=== PATIENT | male | born 1965 | race Caucasian/White ===

== ENCOUNTER → 2020-10-09 09:21 | Outpatient (BNVA) | payer OTHER, SELFPAY | PROVIDERS: Visit Provider Urology | DX: N40.1 Benign prostatic hyperplasia with lower urinary tract symptoms (principal) | CPT/HCPCS: 99212 ==

== ENCOUNTER 2021-04-01 14:06 | Outpatient (REF) | payer OTHER, SELFPAY ==
[2021-04-01 15:30] LABS: Prostate Specific Antigen 0.29 ng/mL (<0.05-4.0)
== END 2021-04-01 14:07 | disposition home or self-care (01) ==
LOC: HO.LAB 14:06
PROVIDERS: Visit Provider Urology
DX: Z12.5 Encounter for screening for malignant neoplasm of prostate (principal); N40.1 Benign prostatic hyperplasia with lower urinary tract symptoms; N13.8 Other obstructive and reflux uropathy
CPT/HCPCS: 36415; 84153

== ENCOUNTER → 2021-04-15 08:53 | Outpatient (BNVA) | payer OTHER, SELFPAY | PROVIDERS: PCP Internal Medicine; Visit Provider Urology ==

== ENCOUNTER 2021-08-19 10:12 | Outpatient (REF) | payer OTHER, SELFPAY ==
[2021-08-19 11:29] LABS: MANUAL DIFF FLAG NO
[2021-08-19 11:41] LABS: Basophils Percent Auto 0.2 % (0-2); Hematocrit 47.3 % (42.0-52.0); Hemoglobin 15.8 g/dl (14.0-18.0); Imm Gran Abs Auto 0.03 X10*3/uL (0.00-0.03); Imm Gran Pct Auto 0.5 % (0.0-0.4); Lymphocytes Absolute Auto 1.6 X10*3/uL (1.2-4.9); Lymphocytes Percent Auto 24.3 % (20-40); Mean Corpuscular HGB Conc 33.4 g/dl (31.0-36.0); Mean Corpuscular Hemoglobin 28.1 pg (27.0-33.0); Mean Corpuscular Volume 84.2 fL (80.0-98.0); Monocytes Absolute Auto 0.6 X10*3/uL (0.1-1.2); Monocytes Percent Auto 9.1 % (2-11); Neutrophils Absolute Auto 4.2 x10*3/uL (2.0-8.3); Neutrophils Percent Auto 65.9 % (45-73); Platelet Count 192 X10*3/uL (160-400); Red Blood Count 5.62 X10*6/uL (4.60-5.80); Red Cell Distribution Width 12.9 % (11.0-16.0); White Blood Count 6.4 X10*3/uL (4.8-10.8)
[2021-08-19 12:21] LABS: TSH reflex Free T4 0.74 uIU/mL (0.32-4.0)
[2021-08-19 12:38] LABS: Alanine Aminotransferase 15 U/L (0-40); Albumin Level 4.7 g/dL (3.5-5.0); Alkaline Phosphatase 161 U/L (39-117); Anion Gap 13 (12-20); Aspartate Amino Transferase 12 U/L (5-37); Bilirubin Total 0.4 mg/dL (0.0-1.0); Blood Urea Nitrogen 11 mg/dL (9-16); Calcium 10.5 mg/dL (8.4-10.2); Carbon Dioxide 27 mmol/L (22-29); Chloride 105 mmol/L (96-108); Cholesterol 200 mg/dL; Estimated Glomerular Filt Rate > 60; Glucose Fasting 124 mg/dL (60-99); HDL Cholesterol 32 mg/dL; LDL Cholesterol Calculated 130 mg/dl; Potassium 4.6 mmol/L (3.3-5.1); Sodium 140 mmol/L (135-145); Total Protein 7.9 g/dL (6.5-8.0); Triglycerides 192 mg/dL
== END 2021-08-19 10:13 | disposition home or self-care (01) ==
LOC: HO.HMGCLDS 10:12
PROVIDERS: Visit Provider Internal Medicine
DX: E66.09 Other obesity due to excess calories (principal); E78.9 Disorder of lipoprotein metabolism, unspecified; K21.9 Gastro-esophageal reflux disease without esophagitis
CPT/HCPCS: 36415; 80053; 80061; 84443; 85025

== ENCOUNTER 2022-01-13 10:12 | Outpatient (REF) | payer OTHER, SELFPAY ==
[2022-01-13 12:10] LABS: Estimated Average Glucose 143 mg/dL; Hemoglobin A1c % 6.6 %
[2022-01-13 12:41] LABS: Alanine Aminotransferase 18 U/L (0-40); Albumin Level 4.6 g/dL (3.5-5.0); Alkaline Phosphatase 151 U/L (39-117); Anion Gap 15 (12-20); Aspartate Amino Transferase 12 U/L (5-37); Bilirubin Total 0.3 mg/dL (0.0-1.0); Blood Urea Nitrogen 9 mg/dL (9-16); Calcium 10.2 mg/dL (8.4-10.2); Carbon Dioxide 24 mmol/L (22-29); Chloride 106 mmol/L (96-108); Estimated Glomerular Filt Rate > 60; Glucose Random 254 mg/dL (60-115); Potassium 4.4 mmol/L (3.3-5.1); Sodium 141 mmol/L (135-145); Total Protein 7.4 g/dL (6.5-8.0)
[2022-01-14 19:17] LABS: LDL Cholesterol Direct 136 mg/dL (<100)
== END 2022-01-13 10:13 | disposition home or self-care (01) ==
LOC: HO.HMGCLDS 10:12
PROVIDERS: PCP Internal Medicine; Visit Provider Internal Medicine
DX: E66.09 Other obesity due to excess calories (principal); E78.9 Disorder of lipoprotein metabolism, unspecified; R73.01 Impaired fasting glucose
CPT/HCPCS: 36415; 80053; 83036; 83721

== ENCOUNTER 2022-07-17 12:12 | Outpatient (REF) | payer OTHER, SELFPAY ==
[2022-07-17 14:03] LABS: MANUAL DIFF FLAG NO
[2022-07-17 14:42] LABS: Hemoglobin 16.5 g/dl (14.0-18.0); Imm Gran Abs Auto 0.03 X10*3/uL (0.00-0.03); Imm Gran Pct Auto 0.5 % (0.0-0.4); Lymphocytes Absolute Auto 1.3 X10*3/uL (1.2-4.9); Lymphocytes Percent Auto 19.2 % (20-40); Mean Corpuscular HGB Conc 34.4 g/dl (31.0-36.0); Mean Corpuscular Hemoglobin 27.1 pg (27.0-33.0); Mean Corpuscular Volume 78.9 fL (80.0-98.0); Mean Platelet Volume 12.1 fL (9.4-12.4); Monocytes Absolute Auto 0.4 X10*3/uL (0.1-1.2); Monocytes Percent Auto 6.1 % (2-11); Neutrophils Absolute Auto 4.9 x10*3/uL (2.0-8.3); Neutrophils Percent Auto 74.2 % (45-73); Platelet Count 175 X10*3/uL (160-400); Red Blood Count 6.08 X10*6/uL (4.60-5.80); Red Cell Distribution Width 13.2 % (11.0-16.0); White Blood Count 6.6 X10*3/uL (4.8-10.8)
[2022-07-17 14:51] LABS: Hemoglobin A1c % > 14.0 %
[2022-07-17 15:14] LABS: Alanine Aminotransferase 15 U/L (0-40); Albumin Level 4.4 g/dL (3.5-5.0); Alkaline Phosphatase 217 U/L (39-117); Anion Gap 17 (12-20); Aspartate Amino Transferase 12 U/L (5-37); Bilirubin Total 0.6 mg/dL (0.0-1.0); Blood Urea Nitrogen 10 mg/dL (9-16); Carbon Dioxide 20 mmol/L (22-29); Chloride 97 mmol/L (96-108); Estimated Glomerular Filt Rate > 60; Glucose Random 701 mg/dL (60-115); Potassium 4.4 mmol/L (3.3-5.1); Sodium 130 mmol/L (135-145); Total Protein 7.4 g/dL (6.5-8.0); Triglycerides 246 mg/dL
[2022-07-17 15:21] LABS: Prostate Specific Antigen 0.35 ng/mL (<0.05-4.0); TSH reflex Free T4 0.57 uIU/mL (0.32-4.0)
[2022-07-19 09:29] LABS: LDL Cholesterol Direct 152 mg/dL (<100)
== END 2022-07-17 12:13 | disposition home or self-care (01) ==
LOC: HO.HMGCLDS 12:12
PROVIDERS: Visit Provider Internal Medicine
DX: R73.01 Impaired fasting glucose (principal); R63.4 Abnormal weight loss; E66.09 Other obesity due to excess calories; E78.9 Disorder of lipoprotein metabolism, unspecified; K21.9 Gastro-esophageal reflux disease without esophagitis; K59.01 Slow transit constipation; N40.1 Benign prostatic hyperplasia with lower urinary tract symptoms
CPT/HCPCS: 36415; 80053; 83036; 83721; 84153; 84443; 84478; 85025

== ENCOUNTER 2022-07-17 16:20 | Emergency (ER) | payer OTHER, SELFPAY ==
[2022-07-17 16:36] VITALS: BP 127/79; PULSE 95; RESP 18; TEMP 36.5; O2SAT 98; BMI 19.6
--- NOTE | 2022-07-17 16:36 | ED_ITS ---
HPI - General Adult General Chief complaint: Recheck/Abnormal Lab/Rx <Ale Hadley CNP - Last Filed: 07/17/22 18:09> Stated complaint: High blood sugar <Ale Hadley CNP - Last Filed: 07/17/22 18:09> Time Seen by Provider: 07/17/22 20:55 <Ale Hadley CNP - Last Filed: 07/17/22 18:09> Source: patient and language interpreter <Eleonora Hernandez MD - Last Filed: 07/17/22 22:17> Mode of arrival: ambulatory <Eleonora Hernandez MD - Last Filed: 07/17/22 22:17> History of Present Illness HPI narrative: 57-year-old male who presents from his primary care provider's office after they checked his blood sugar level and noted that it was ?very high?. Patient states he has never been sick in his life he has no other medical complaints other than frequent urination and on review of his medication list he is on a significant number of antipsychotics and benzodiazepines. Patient denies fever, chills, shortness of breath, chest pain/palpitations, nausea, vomiting, diarrhea. <Eleonora Hernandez MD - Last Filed: 07/17/22 22:17> Related Data Home medications: Home Medications Medication Instructions Recorded Confirmed haloperidol 10 mg tablet mg PO 10/09/20 07/17/22 haloperidol 5 mg tablet mg PO 10/09/20 07/17/22 lorazepam 1 mg tablet 1 mg PO QID PRN 10/09/20 07/17/22 olanzapine 10 mg tablet 10 mg PO BEDTIME 10/09/20 07/17/22 olanzapine 20 mg tablet mg PO 10/09/20 07/17/22 polyethylene glycol 3350 17 g PO 10/09/20 07/17/22 gram/dose oral powder trazodone 100 mg tablet 100 mg PO BEDTIME 10/09/20 07/17/22 tamsulosin 0.4 mg capsule 0.4 mg PO DAILY 01/13/22 07/17/22 Previous Rx's Medication Instructions Recorded omeprazole 20 mg capsule,delayed 20 mg PO DAILY #90 caps 05/18/22 release gemfibrozil 600 mg tablet 600 mg PO BID #60 tabs 01/31/23 metformin 1,000 mg tablet 1,000 mg PO BIDWMEAL #60 tabs 07/17/22 <Ale Hadley CNP - Last Filed: 07/17/22 18:09> Allergies/adverse reactions: Allergies Allergy/AdvReac Type Severity Reaction Status Date / Time clozapine [From CLOZARIL] Allergy Unknown UNKNOWN Verified 07/17/22 11:57 lamotrigine [Lamictal] Allergy Unknown unknown Verified 07/17/22 11:57 phenytoin [Dilantin] Allergy Unknown unknown Verified 07/17/22 11:57 <Ale Hadley CNP - Last Filed: 07/17/22 18:09> Review of Systems Review of Systems: Pertinent positives and negatives as stated in HPI <Eleonora Hernandez MD - Last Filed: 07/17/22 22:17> PMFSH Past Medical History Source: nursing notes reviewed <Eleonora Hernandez MD - Last Filed: 07/17/22 22:17> Medical History: Medical History Anxiety Benign prostatic hyperplasia with lower urinary tract symptoms GERD (gastroesophageal reflux disease) H/O urinary frequency Insomnia <Ale Hadley CNP - Last Filed: 07/17/22 18:09> Surgical History: Surgical History No pertinent past surgical history <Ale Hadley CNP - Last Filed: 07/17/22 18:09> Family History Family History: Family History Father No problems noted. Mother No problems noted. <Ale Hadley CNP - Last Filed: 07/17/22 18:09> Social History Social History: Social History Housing: Apartment Alcohol intake: never Patient Tobacco Use Status: Current everyday Tobacco user Tobacco use type: Cigarette Cigarette Packs Per Day: 1 Cigarettes Per Day: 20 Years Smoked: 5 Smoked in Last 30 Days: Yes e-Cigarette/Vaping Use: Never Used Use of substances other than those prescribed or required for medical reasons: No Advance Directives: No Advance Directives Information Provided: No service: No Current occupational status: retired Cognitive needs: No Hearing needs: No Vision needs: No <Ale ColeBEVERLY naqvi - Last Filed: 07/17/22 18:09> Physical Exam ED Vital Signs: Vital Signs - 24 hr 07/17/22 16:36 07/17/22 19:24 07/17/22 21:36 Temperature 97.7 F 96.7 F L 98.4 F Pulse Rate 95 89 77 Respiratory Rate 18 18 18 Blood Pressure 127/79 137/86 113/71 Pulse Oximetry 98 100 98 Oxygen Delivery Method Room Air Room Air Room Air BMI result Body Mass Index 19.6 <Ale ColeBEVERLY naqvi - Last Filed: 07/17/22 18:09> Vital Signs - 24 hr 07/17/22 16:36 07/17/22 19:24 07/17/22 21:36 Temperature 97.7 F 96.7 F L 98.4 F Pulse Rate 95 89 77 Respiratory Rate 18 18 18 Blood Pressure 127/79 137/86 113/71 Pulse Oximetry 98 100 98 Oxygen Delivery Method Room Air Room Air Room Air BMI result Body Mass Index 19.6 VITAL SIGNS: Reviewed. GENERAL: Well developed, well nourished, in no acute distress. HEAD: Normocephalic/atraumatic EYES: PERRLA, EOMI LUNGS: Normal breath sounds. No adventitious sounds or accessory muscle use. SpO2<98> CARDIOVASCULAR: Regular rate and rhythm without noted murmurs ABDOMEN: Soft, non-tender, non-distended with bowel sounds. MUSCULOSKELETAL: No tenderness, deformities, or effusions noted on gross inspection. EXTREMITIES: No cyanosis, clubbing or edema. SKIN: Inspection of the skin reveals no rashes NEUROLOGIC: Alert and oriented x 4. Strength and sensation to light touch were grossly intact x 4. <Eleonora Hernandez MD - Last Filed: 07/17/22 22:17> Course Course Course Narrative: This is an RME: Additional HPI, ROS, PE not included below will be deferred to primary provider. Patient is a 57-year-old male who presents to the emergency department for evaluation. Patient states that he was seen by his doctor today for a routine physical, was sent to the lab to have blood work obtained, he then received a call from the doctor's office was advised to come to the emergency department due to elevated blood sugar. Review of labs obtained indicate a sodium of 130, glucose of 701, and A1c >14, has prior diagnosis of impaired fasting glucose. He reports a poor appetite, he has not been eating as much, states over the past 2 months he has lost 30-40 lbs. He does endorse polyuria, polydipsia. Denies any abdominal pain, nausea, vomiting. PE: POC glucose 527 Plan: Reviewed remainder of labs, no gap, do not suspect DKA at this time, labs are otherwise unremarkable, corrected sodium of 140. 1 L normal saline IVF ordered, insulin lispro 5 units subQ, clinical account manager made aware <Ale Hadley CNP - Last Filed: 07/17/22 18:09> Medications Administered Generic Name Dose Route Start Last Admin Trade Name Freq PRN Reason Stop Dose Admin Sodium Chloride 2,000 mls @ 999 mls/hr 07/17/22 21:00 07/17/22 21:28 Ns IV 07/17/22 23:00 999 mls/hr .Q2H1M MIK Administration Discontinued Medications Generic Name Dose Route Start Last Admin Trade Name Freq PRN Reason Stop Dose Admin Sodium Chloride 1,000 mls @ 999 mls/hr 07/17/22 17:00 07/17/22 20:40 Ns IV 07/17/22 18:00 Infused .Q1H1M MIK Infusion Insulin Human Lispro 5 unit 07/17/22 16:52 07/17/22 19:39 Insulin Lispro 100 Unit/Ml 3 Ml Vial SUBCUT 07/17/22 16:53 5 unit ONCE ONE Administration <Ale Hadley CNP - Last Filed: 07/17/22 18:09> Medications Administered Generic Name Dose Route Start Last Admin Trade Name Freq PRN Reason Stop Dose Admin Sodium Chloride 2,000 mls @ 999 mls/hr 07/17/22 21:00 07/17/22 21:28 Ns IV 07/17/22 23:00 999 mls/hr .Q2H1M MIK Administration Discontinued Medications Generic Name Dose Route Start Last Admin Trade Name Freq PRN Reason Stop Dose Admin Sodium Chloride 1,000 mls @ 999 mls/hr 07/17/22 17:00 07/17/22 20:40 Ns IV 07/17/22 18:00 Infused .Q1H1M MIK Infusion Insulin Human Lispro 5 unit 07/17/22 16:52 07/17/22 19:39 Insulin Lispro 100 Unit/Ml 3 Ml Vial SUBCUT 07/17/22 16:53 5 unit ONCE ONE Administration <Eleonora Hernandez MD - Last Filed: 07/17/22 22:17> Medical Decision Making Medical Decision Making MDM Narrative: 57-year-old male with history and clinical presentation most consistent with hyperglycemia that was diagnosed by his primary care provider who then referred the patient into the emergency room. It appears that patient has had ongoing polyuria and he states that he got a referral for Urology and does not believe that the frequent urination is secondary to his high sugar levels. Patient endorses that he drinks sodas and juices throughout the day. On review of medications would seem that patient has some form of schizoaffective or und erlying psychiatric condition given the fact that he is on Haldol, Zyprexa, benzodiazepines. Will get basic labs, patient received 5 units of list bro subcutaneous as well as a L of IV fluids, he is declining any further IV fluids and sugar is noted to have decreased to mid 200s. He is certainly not in HHS and doubt any form of DKA. He will be discharged on medications with strict return precautions and I will send by note over to his primary care provider so that she can further manage this patient. I reviewed all investigations my interpretation is that this is a patient who has new onset diabetes with clinical symptoms of this with polyuria. The hospital is not currently running acetone levels. 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 He will be started on medication and I am sending my note to his primary care provider. I have no concerns for DKA at this time. <Eleonora Hernandez MD - Last Filed: 07/17/22 22:17> Differential Diagnosis Please see the discussion above <Eleonora Hernandez MD - Last Filed: 07/17/22 22:17> Lab Data Please see the discussion above <Eleonora Hernandez MD - Last Filed: 07/17/22 22:17> Result Diagrams: 07/17/22 21:29 07/17/22 21:29 <Ale Hadley CNP - Last Filed: 07/17/22 18:09> Labs: Lab Results 07/17/22 07/17/22 07/17/22 Range/Units 16:44 21:21 21:29 WBC 6.0 (4.8-10.8) X10*3/uL RBC 5.74 (4.60-5.80) X10*6/uL Hgb 15.2 (14.0-18.0) g/dl Hct 44.7 (42.0-52.0) % MCV 77.9 L (80.0-98.0) fL MCH 26.5 L (27.0-33.0) pg MCHC 34.0 (31.0-36.0) g/dl RDW 13.2 (11.0-16.0) % Plt Count 171 (160-400) X10*3/uL MPV 10.8 (9.4-12.4) fL Immature Gran % (Auto) 0.3 (0.0-0.4) % Neut % (Auto) 62.8 (45-73) % Lymph % (Auto) 29.6 (20-40) % Jennings % (Auto) 7.1 (2-11) % Eos % (Auto) 0.2 (0-4) % Baso % (Auto) 0.0 (0-2) % Lymph # (Auto) 1.8 (1.2-4.9) X10*3/uL Jennings # (Auto) 0.4 (0.1-1.2) X10*3/uL Eos # (Auto) 0.0 (0.0-0.4) X10*3/uL Baso # (Auto) 0.0 (0.0-0.2) X10*3/uL Abs Immat Gran (auto) 0.02 (0.00-0.03) X10*3/uL Absolute Neuts (auto) 3.8 (2.0-8.3) x10*3/uL Absolute Nucleated RBC 0.000 (0.0-0.012) X10*3/uL Nucleated RBC % (auto) 0.0 (0.0-0.2) /100WBC Sodium (135-145) mmol/L Potassium (3.3-5.1) mmol/L Chloride (96-108) mmol/L Carbon Dioxide (22-29) mmol/L Anion Gap (12-20) BUN (9-16) mg/dL Creatinine (0.5-1.4) mg/dL Estim Creat Clear Calc Estimated GFR POC Glucose 524 H* 285 H (60-115) mg/dL Random Glucose (60-115) mg/dL Calcium (8.4-10.2) mg/dL Total Bilirubin (0.0-1.0) mg/dL AST (5-37) U/L ALT (0-40) U/L Alkaline Phosphatase (39-117) U/L Total Protein (6.5-8.0) g/dL Albumin (3.5-5.0) g/dL 07/17/22 Range/Units 21:29 WBC (4.8-10.8) X10*3/uL RBC (4.60-5.80) X10*6/uL Hgb (14.0-18.0) g/dl Hct (42.0-52.0) % MCV (80.0-98.0) fL MCH (27.0-33.0) pg MCHC (31.0-36.0) g/dl RDW (11.0-16.0) % Plt Count (160-400) X10*3/uL MPV (9.4-12.4) fL Immature Gran % (Auto) (0.0-0.4) % Neut % (Auto) (45-73) % Lymph % (Auto) (20-40) % Jennings % (Auto) (2-11) % Eos % (Auto) (0-4) % Baso % (Auto) (0-2) % Lymph # (Auto) (1.2-4.9) X10*3/uL Jennings # (Auto) (0.1-1.2) X10*3/uL Eos # (Auto) (0.0-0.4) X10*3/uL Baso # (Auto) (0.0-0.2) X10*3/uL Abs Immat Gran (auto) (0.00-0.03) X10*3/uL Absolute Neuts (auto) (2.0-8.3) x10*3/uL Absolute Nucleated RBC (0.0-0.012) X10*3/uL Nucleated RBC % (auto) (0.0-0.2) /100WBC Sodium 139 (135-145) mmol/L Potassium 3.4 D (3.3-5.1) mmol/L Chloride 105 (96-108) mmol/L Carbon Dioxide 24 (22-29) mmol/L Anion Gap 13 (12-20) BUN 8 L (9-16) mg/dL Creatinine 0.89 (0.5-1.4) mg/dL Estim Creat Clear Calc 89.6 Estimated GFR > 60 POC Glucose (60-115) mg/dL Random Glucose 246 H (60-115) mg/dL Calcium 9.6 (8.4-10.2) mg/dL Total Bilirubin 0.6 (0.0-1.0) mg/dL AST 9 (5-37) U/L ALT 11 (0-40) U/L Alkaline Phosphatase 180 H (39-117) U/L Total Protein 6.5 (6.5-8.0) g/dL Albumin 4.0 (3.5-5.0) g/dL <Ale Hadley, COMMUNITY FUNDRAISER - Last Filed: 07/17/22 18:09> Lab Results 07/17/22 07/17/22 07/17/22 Range/Units 16:44 21:21 21:29 WBC 6.0 (4.8-10.8) X10*3/uL RBC 5.74 (4.60-5.80) X10*6/uL Hgb 15.2 (14.0-18.0) g/dl Hct 44.7 (42.0-52.0) % MCV 77.9 L (80.0-98.0) fL MCH 26.5 L (27.0-33.0) pg MCHC 34.0 (31.0-36.0) g/dl RDW 13.2 (11.0-16.0) % Plt Count 171 (160-400) X10*3/uL MPV 10.8 (9.4-12.4) fL Immature Gran % (Auto) 0.3 (0.0-0.4) % Neut % (Auto) 62.8 (45-73) % Lymph % (Auto) 29.6 (20-40) % Jennings % (Auto) 7.1 (2-11) % Eos % (Auto) 0.2 (0-4) % Baso % (Auto) 0.0 (0-2) % Lymph # (Auto) 1.8 (1.2-4.9) X10*3/uL Jennings # (Auto) 0.4 (0.1-1.2) X10*3/uL Eos # (Auto) 0.0 (0.0-0.4) X10*3/uL Baso # (Auto) 0.0 (0.0-0.2) X10*3/uL Abs Immat Gran (auto) 0.02 (0.00-0.03) X10*3/uL Absolute Neuts (auto) 3.8 (2.0-8.3) x10*3/uL Absolute Nucleated RBC 0.000 (0.0-0.012) X10*3/uL Nucleated RBC % (auto) 0.0 (0.0-0.2) /100WBC Sodium (135-145) mmol/L Potassium (3.3-5.1) mmol/L Chloride (96-108) mmol/L Carbon Dioxide (22-29) mmol/L Anion Gap (12-20) BUN (9-16) mg/dL Creatinine (0.5-1.4) mg/dL Estim Creat Clear Calc Estimated GFR POC Glucose 524 H* 285 H (60-115) mg/dL Random Glucose (60-115) mg/dL Calcium (8.4-10.2) mg/dL Total Bilirubin (0.0-1.0) mg/dL AST (5-37) U/L ALT (0-40) U/L Alkaline Phosphatase (39-117) U/L Total Protein (6.5-8.0) g/dL Albumin (3.5-5.0) g/dL 07/17/22 Range/Units 21:29 WBC (4.8-10.8) X10*3/uL RBC (4.60-5.80) X10*6/uL Hgb (14.0-18.0) g/dl Hct (42.0-52.0) % MCV (80.0-98.0) fL MCH (27.0-33.0) pg MCHC (31.0-36.0) g/dl RDW (11.0-16.0) % Plt Count (160-400) X10*3/uL MPV (9.4-12.4) fL Immature Gran % (Auto) (0.0-0.4) % Neut % (Auto) (45-73) % Lymph % (Auto) (20-40) % Jennings % (Auto) (2-11) % Eos % (Auto) (0-4) % Baso % (Auto) (0-2) % Lymph # (Auto) (1.2-4.9) X10*3/uL Jennings # (Auto) (0.1-1.2) X10*3/uL Eos # (Auto) (0.0-0.4) X10*3/uL Baso # (Auto) (0.0-0.2) X10*3/uL Abs Immat Gran (auto) (0.00-0.03) X10*3/uL Absolute Neuts (auto) (2.0-8.3) x10*3/uL Absolute Nucleated RBC (0.0-0.012) X10*3/uL Nucleated RBC % (auto) (0.0-0.2) /100WBC Sodium 139 (135-145) mmol/L Potassium 3.4 D (3.3-5.1) mmol/L Chloride 105 (96-108) mmol/L Carbon Dioxide 24 (22-29) mmol/L Anion Gap 13 (12-20) BUN 8 L (9-16) mg/dL Creatinine 0.89 (0.5-1.4) mg/dL Estim Creat Clear Calc 89.6 Estimated GFR > 60 POC Glucose (60-115) mg/dL Random Glucose 246 H (60-115) mg/dL Calcium 9.6 (8.4-10.2) mg/dL Total Bilirubin 0.6 (0.0-1.0) mg/dL AST 9 (5-37) U/L ALT 11 (0-40) U/L Alkaline Phosphatase 180 H (39-117) U/L Total Protein 6.5 (6.5-8.0) g/dL Albumin 4.0 (3.5-5.0) g/dL <Eleonora Hernandez MD - Last Filed: 07/17/22 22:17> External Record Review External record reviewed: Outpatient record and Prior outpatient labs <Eleonora Hernandez MD - Last Filed: 07/17/22 22:17> Chronic Conditions Patient?s care impacted by: Diabetes <Eleonora Hernandez MD - Last Filed: 07/17/22 22:17> Critical Care Time Critical Care Time Critical Care Time: Yes <Eleonora Hernandez MD - Last Filed: 07/17/22 22:17> Total Critical Care Time: 30 <Eleonora Hernandez MD - Last Filed: 07/17/22 22:17> Attestation: I personally attest to this time spent taking care of the patient. <Eleonora Hernandez MD - Last Filed: 07/17/22 22:17> Discharge Plan Discharge Clinical Impression: Diabetes mellitus, new onset, Hyperglycemia due to diabetes mellitus <Ale Hadley CNP - Last Filed: 07/17/22 18:09> Patient Disposition: Home, Self-Care <Ale Hadley CNP - Last Filed: 07/17/22 18:09> Instructions: Type 2 Diabetes in Adults: New Diagnosis (ED), Type 2 Diabetes in the Older Adult (ED), Diabetes and Nutrition (ED), Diabetes and Exercise (ED) <Ale Hadley CNP - Last Filed: 07/17/22 18:09> Additional Instructions: [place] todos yaneli medicamentos seg?n lo prescrito. Llame a la oficina de hutton proveedor de atenci?n primaria el lunes por la ma?perry para programar sherman eren para la reevaluaci?n. Turk comenzado con un nuevo medicamento y debe comenzar a tomarlo lo antes posible. Regrese a la mando de emergencias por cualquier cambio o empeoramiento de las co ndiciones. Please take all of your medication as prescribed. Please call the office of your primary care provider on Wednesday morning to set up an appointment for re-evaluation. You have been started on a new medication and should begin taking this as soon as possible. Return to the emergency room for any change or worsening conditions. <Ale Hadley CNP - Last Filed: 07/17/22 18:09> Prescriptions: New metformin 1,000 mg tablet 1,000 mg PO BIDWMEAL Qty: 60 0RF No Action omeprazole 20 mg capsule,delayed release(DR/EC) 20 mg PO DAILY Qty: 90 0RF gemfibrozil 600 mg tablet 600 mg PO BID Qty: 60 0RF tamsulosin 0.4 mg capsule 0.4 mg PO DAILY polyethylene glycol 3350 17 gram/dose powder PO trazodone 100 mg tablet 100 mg PO BEDTIME haloperidol 5 mg tablet PO lorazepam 1 mg tablet 1 mg PO QID PRN olanzapine 20 mg tablet PO haloperidol 10 mg tablet PO olanzapine 10 mg tablet 10 mg PO BEDTIME <Ale Hadley CNP - Last Filed: 07/17/22 18:09> Referrals: Crystal Lenz MD [Primary Care Provider] - 1 day (Your patient has new diabetes, please follow-up as soon as possible. He was started on 1000 mg of metformin twice a day.) <Ale Hadley CNP - Last Filed: 07/17/22 18:09> Print Language: Sinhala <Ale Hadley CNP - Last Filed: 07/17/22 18:09>
[2022-07-17 16:53] LABS: Glucose, Whole Blood 524 mg/dL (60-115)
[2022-07-17 19:24] VITALS: BP 137/86; PULSE 89; RESP 18; TEMP 35.9; O2SAT 100
[2022-07-17] MEDS: 0.9 % Sodium Chloride 1,000 ML 999 ML IV (19:39)
[2022-07-17] MEDS: Insulin Lispro 100 UNIT/ML 3 ML VIAL SUBCUT (19:39)
--- NOTE | 2022-07-17 19:41 | PC.NURSE ---
PT ALMAGUER x3 medicated pt per Jul. IV site started to LAC 20 G.
[2022-07-17 21:25] LABS: Glucose, Whole Blood 285 mg/dL (60-115)
[2022-07-17] MEDS: 0.9 % Sodium Chloride 2,000 ML 999 ML IV (21:28)
[2022-07-17 21:36] VITALS: BP 113/71; PULSE 77; RESP 18; TEMP 36.9; O2SAT 98
[2022-07-17 21:37] LABS: MANUAL DIFF FLAG NO
[2022-07-17 21:40] LABS: Eosinophils Percent Auto 0.2 % (0-4); Hematocrit 44.7 % (42.0-52.0); Hemoglobin 15.2 g/dl (14.0-18.0); Imm Gran Abs Auto 0.02 X10*3/uL (0.00-0.03); Imm Gran Pct Auto 0.3 % (0.0-0.4); Lymphocytes Absolute Auto 1.8 X10*3/uL (1.2-4.9); Lymphocytes Percent Auto 29.6 % (20-40); Mean Corpuscular Hemoglobin 26.5 pg (27.0-33.0); Mean Corpuscular Volume 77.9 fL (80.0-98.0); Mean Platelet Volume 10.8 fL (9.4-12.4); Monocytes Absolute Auto 0.4 X10*3/uL (0.1-1.2); Monocytes Percent Auto 7.1 % (2-11); Neutrophils Absolute Auto 3.8 x10*3/uL (2.0-8.3); Neutrophils Percent Auto 62.8 % (45-73); Platelet Count 171 X10*3/uL (160-400); Red Blood Count 5.74 X10*6/uL (4.60-5.80); Red Cell Distribution Width 13.2 % (11.0-16.0)
[2022-07-17 21:59] LABS: Alanine Aminotransferase 11 U/L (0-40); Alkaline Phosphatase 180 U/L (39-117); Anion Gap 13 (12-20); Aspartate Amino Transferase 9 U/L (5-37); Bilirubin Total 0.6 mg/dL (0.0-1.0); Blood Urea Nitrogen 8 mg/dL (9-16); Calcium 9.6 mg/dL (8.4-10.2); Carbon Dioxide 24 mmol/L (22-29); Chloride 105 mmol/L (96-108); Creatinine Clr Calc Pharmacy 89.6; Estimated Glomerular Filt Rate > 60; Glucose Random 246 mg/dL (60-115); Potassium 3.4 mmol/L (3.3-5.1); Sodium 139 mmol/L (135-145); Total Protein 6.5 g/dL (6.5-8.0)
[2022-07-18 05:12] LABS: Hemoglobin A1c % > 14.0 %
== END 2022-07-17 22:58 | disposition home or self-care (01) ==
PROVIDERS: Emergency Provider Student in an Organized Health Care Education/Training Program; PCP Internal Medicine
DX: E11.65 Type 2 diabetes mellitus with hyperglycemia (principal); R79.89 Other specified abnormal findings of blood chemistry; F17.210 Nicotine dependence, cigarettes, uncomplicated; Z71.6 Tobacco abuse counseling; Z79.899 Other long term (current) drug therapy; Z79.84 Long term (current) use of oral hypoglycemic drugs
CPT/HCPCS: 36415; 80053; 82947; 83036; 85025; 96360; 99284

== ENCOUNTER 2022-09-11 17:27 | Emergency (ER) | payer OTHER, SELFPAY ==
--- NOTE | 2022-09-11 18:09 | ECG_ITS ---
Test Reason : HIGH BLOOD SUGAR Blood Pressure : / mmHG Vent. Rate : 096 BPM Atrial Rate : 096 BPM P-R Int : 138 ms QRS Dur : 084 ms QT Int : 346 ms P-R-T Axes : 065 078 067 degrees QTc Int : 437 ms Normal sinus rhythm Normal ECG When compared with ECG of 27-FEB-2016 11:55, ST no longer depressed in Inferior leads Nonspecific T wave abnormality now evident in Anterior leads QT has shortened Referred By: Sun Castillo Electronically Signed By:Patrick Granados
[2022-09-11 18:17] VITALS: BP 145/79; PULSE 96; RESP 16; TEMP 35.8; O2SAT 99; BMI 19.9
--- NOTE | 2022-09-11 18:20 | ED_ITS ---
HPI - General Adult General Chief complaint: General Medical <TONO Sommer - Last Filed: 09/11/22 18:30> Stated complaint: High blood sugar <TONO Sommer - Last Filed: 09/11/22 18:30> Time Seen by Provider: 09/11/22 22:03 <TONO Sommer - Last Filed: 09/11/22 18:30> Source: patient <Martha Ferrera MD - Last Filed: 09/11/22 22:46> Mode of arrival: ambulatory <Martha Ferrera MD - Last Filed: 09/11/22 22:46> Limitations: no limitations <Martha Ferrera MD - Last Filed: 09/11/22 22:46> History of Present Illness HPI narrative: Patient comes to the emergency room, states he does not know why he is here. 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 Patient states that he is completely asymptomatic, and is in full and I will that he is not diabetic. Patient has been previously prescribed metformin but he does not take it because he does not believe he is diabetic. At this time, patient's automobile spring repairer is not with the patient. <Martha Ferrera MD - Last Filed: 09/11/22 22:46> Related Data Home medications: Home Medications Medication Instructions Recorded Confirmed haloperidol 10 mg tablet mg PO 10/09/20 08/19/22 haloperidol 5 mg tablet mg PO 10/09/20 08/19/22 lorazepam 1 mg tablet 1 mg PO QID PRN 10/09/20 08/19/22 olanzapine 10 mg tablet 10 mg PO BEDTIME 10/09/20 08/19/22 olanzapine 20 mg tablet mg PO 10/09/20 08/19/22 polyethylene glycol 3350 17 g PO 10/09/20 08/19/22 gram/dose oral powder tamsulosin 0.4 mg capsule 0.4 mg PO DAILY 01/13/22 08/19/22 lorazepam 2 mg tablet (Ativan) 2 mg PO BEDTIME PRN 08/19/22 08/19/22 Previous Rx's Medication Instructions Recorded omeprazole 20 mg capsule,delayed 20 mg PO DAILY #90 caps 05/18/22 release blood sugar diagnostic (FreeStyle #100 ea 08/19/22 Lite Strips) blood-glucose meter (FreeStyle #1 ea 08/19/22 Lite Meter kit) lancets 28 gauge (FreeStyle #100 ea 08/19/22 Lancets) metformin 1,000 mg tablet 1,000 mg PO BIDWMEAL #60 tabs 08/25/22 gemfibrozil 600 mg tablet 600 mg PO BID #60 tabs 08/26/22 <TONO Sommer - Last Filed: 09/11/22 18:30> Allergies/adverse reactions: Allergies Allergy/AdvReac Type Severity Reaction Status Date / Time clozapine [From CLOZARIL] Allergy Unknown UNKNOWN Verified 08/19/22 12:03 lamotrigine [Lamictal] Allergy Unknown unknown Verified 08/19/22 12:03 phenytoin [Dilantin] Allergy Unknown unknown Verified 08/19/22 12:03 <TONO Sommer - Last Filed: 09/11/22 18:30> Review of Systems Review of Systems: Constitutional : No Weight loss, No Fever, No Chills, No Night Sweats, No Fatigue, No Malaise ENT/Mouth : No Hearing loss, No Ear Pain, No Nasal Congestion, No Sinus Pain, No Hoarseness, No sore throat, No Rhinorrhea, No Swallowing Difficulty Eyes: No Eye Pain, No Swelling, No Redness, No Foreign Body, No Discharge, No Vision Changes Cardiovascular : No Chest Pain, No SOB, No Dyspnea on Exertion, No Orthopnea, No Edema, No Palpitations Respiratory : No Cough, No Sputum, No Wheezing, No Smoke Exposure, No Dyspnea Gastrointestinal : No Nausea, No Vomiting, No Diarrhea, No Constipation, No abdominal Pain, No Hematochezia, No Melena Genitourinary : no irregular bleeding, No Dysuria, No Urinary Frequency, No Hematuria, No Urinary Incontinence, No Urgency, No Flank Pain, No Urinary Flow Changes, No Hesitancy Musculoskeletal : No joint pain, No Myalgias, No Joint Swelling Skin : No Skin Lesions, No rash Neuro : No Weakness, No Numbness, No Paresthesias, No Loss of Consciousness, No Dizziness, No Headache Psych : No Anxiety/Panic, No Depression, No SI/HI/AH/VH, No Social Issues, Heme/Lymph: No Bruising, No Bleeding,No Lymphadenopathy Endocrine : No Polyuria, No Polydipsia, No Temperature Intolerance <Martha Ferrera MD - Last Filed: 09/11/22 22:46> [facility] Past Medical History Medical History: Medical History Anxiety Benign prostatic hyperplasia with lower urinary tract symptoms Diabetes mellitus GERD (gastroesophageal reflux disease) H/O urinary frequency Insomnia <TONO Sommer - Last Filed: 09/11/22 18:30> Surgical History: Surgical History No pertinent past surgical history <TONO Sommer - Last Filed: 09/11/22 18:30> Family History Family History: Family History Father No problems noted. Mother No problems noted. <TONO Sommer - Last Filed: 09/11/22 18:30> Social History Social History: Social History Housing: Apartment Alcohol intake: never Patient Tobacco Use Status: Current everyday Tobacco user Tobacco use type: Cigarette Cigarette Packs Per Day: 1 Cigarettes Per Day: 20 Years Smoked: 5 e-Cigarette/Vaping Use: Never Used Advance Directives: No Advance Directives Information Provided: No service: No Current occupational status: retired Cognitive needs: No Hearing needs: No Vision needs: No <TONO Sommer - Last Filed: 09/11/22 18:30> Physical Exam ED Vital Signs: Vital Signs - 24 hr 09/11/22 18:17 Temperature 96.5 F L Pulse Rate 96 Respiratory Rate 16 Blood Pressure 145/79 H Pulse Oximetry 99 Oxygen Delivery Method Room Air BMI result Body Mass Index 19.9 <TONO Sommer - Last Filed: 09/11/22 18:30> Vital Signs - 24 hr 09/11/22 18:17 Temperature 96.5 F L Pulse Rate 96 Respiratory Rate 16 Blood Pressure 145/79 H Pulse Oximetry 99 Oxygen Delivery Method Room Air BMI result Body Mass Index 19.9 <Martha Ferrera MD - Last Filed: 09/11/22 22:46> Const Other: Appearance: Alert. Oriented X3. No acute distress. Eyes: Pupils equal, round and reactive to light. ENT: Pharynx normal. Neck: Normal inspection. Neck supple. No lymph nodes noted. No crepitus CVS: Normal heart rate and rhythm. Pulses normal. Normal S1 and S2 Respiratory: No respiratory distress. Breath sounds normal. No Wheezing. No rales Abdomen: Soft and nontender. No rigidity. No distention. Skin: Skin warm and dry. Normal skin color. Normal skin turgor. Extremities: No lower extremity edema. No Lacerations. No Rash Neuro: Oriented X 3. No motor deficit. No sensory deficit. Moving all extremities. No slurred speech. 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 Patient reports he is in his normal state of health, unclear why he is here. States receives regular blood work however has not had any labs drawn. Denies complaints at present. Unclear if patient is medication compliant, spoke with Elizabeth (# in sticky) A&Ox3 EKG, Labs, UA ordered Full HPI, ROS and PE to be performed by primary ED provider. <TONO Sommer - Last Filed: 09/11/22 18:30> Medical Decision Making Medical Decision Making MDM Narrative: -patient is asymptomatic and does not know why he is here. -patient states that he has been told that he is diabetic but he does not believe diabetic and refuses to take any diabetic medications. -discussed the blood sugar elevation with the patient, discussed that unfortunately diabetes initially does not have significant symptoms but if he has poor blood glucose control, he will have irreversible symptoms. Patient still in denial that his diabetic. -patient has a prescription for metformin that was filled approximately 2 weeks ago. -patient will need help from his caretakers to take the medication, patient seems to have some developmental delay, and cannot understand the concept of being diabetic and not having symptoms. -patient's point of care is 218. At this time, no need for IV fluids or insulin. Discussed with the patient the importance of taking his medications. <Martha Ferrera MD - Last Filed: 09/11/22 22:46> Lab Data Result Diagrams: 09/11/22 19:13 09/11/22 19:13 <TONO Sommer - Last Filed: 09/11/22 18:30> Labs: Lab Results 09/11/22 09/11/22 09/11/22 Range/Units 19:04 19:13 19:13 WBC 5.7 (4.8-10.8) X10*3/uL RBC 5.61 (4.60-5.80) X10*6/uL Hgb 15.3 (14.0-18.0) g/dl Hct 45.2 (42.0-52.0) % MCV 80.6 (80.0-98.0) fL MCH 27.3 (27.0-33.0) pg MCHC 33.8 (31.0-36.0) g/dl RDW 14.0 (11.0-16.0) % Plt Count 182 (160-400) X10*3/uL MPV 10.7 (9.4-12.4) fL Immature Gran % (Auto) 0.4 (0.0-0.4) % Neut % (Auto) 64.4 (45-73) % Lymph % (Auto) 27.4 (20-40) % Marion % (Auto) 7.8 (2-11) % Eos % (Auto) 0.0 (0-4) % Baso % (Auto) 0.0 (0-2) % Lymph # (Auto) 1.6 (1.2-4.9) X10*3/uL Marion # (Auto) 0.4 (0.1-1.2) X10*3/uL Eos # (Auto) 0.0 (0.0-0.4) X10*3/uL Baso # (Auto) 0.0 (0.0-0.2) X10*3/uL Abs Immat Gran (auto) 0.02 (0.00-0.03) X10*3/uL Absolute Neuts (auto) 3.7 (2.0-8.3) x10*3/uL Absolute Nucleated RBC 0.000 (0.0-0.012) X10*3/uL Nucleated RBC % (auto) 0.0 (0.0-0.2) /100WBC Sodium 139 (135-145) mmol/L Potassium 4.0 (3.3-5.1) mmol/L Chloride 104 (96-108) mmol/L Carbon Dioxide 26 (22-29) mmol/L Anion Gap 13 (12-20) BUN 7 L (9-16) mg/dL Creatinine 0.86 (0.5-1.4) mg/dL Estim Creat Clear Calc 94.0 Estimated GFR > 60 POC Glucose 275 H (60-115) mg/dL Random Glucose 253 H (60-115) mg/dL Calcium 9.5 (8.4-10.2) mg/dL Magnesium 1.6 (1.6-2.6) mg/dL Total Bilirubin 0.5 (0.0-1.0) mg/dL Direct Bilirubin 0.1 (0.0-0.5) mg/dL AST 6 (5-37) U/L ALT 7 (0-40) U/L Alkaline Phosphatase 202 H (39-117) U/L Ammonia (13-55) umol/L Total Protein 6.8 (6.5-8.0) g/dL Albumin 4.2 (3.5-5.0) g/dL Urine Color Urine Appearance Urine pH (5.0-9.0) Ur Specific [place] (1.005-1.025) Urine Protein (Neg-Trace) mg/dL Urine Glucose (UA) (Negative) mg/dL Urine Ketones (Negative) mg/dL Urine Blood (Negative) Urine Nitrite (Negative) Ur Leukocyte Esterase (Negative) Acetone, Qual Negative (Negative) 09/11/22 09/11/22 09/11/22 Range/Units 19:13 19:13 22:21 WBC (4.8-10.8) X10*3/uL RBC (4.60-5.80) X10*6/uL Hgb (14.0-18.0) g/dl Hct (42.0-52.0) % MCV (80.0-98.0) fL MCH (27.0-33.0) pg MCHC (31.0-36.0) g/dl RDW (11.0-16.0) % Plt Count (160-400) X10*3/uL MPV (9.4-12.4) fL Immature Gran % (Auto) (0.0-0.4) % Neut % (Auto) (45-73) % Lymph % (Auto) (20-40) % Marion % (Auto) (2-11) % Eos % (Auto) (0-4) % Baso % (Auto) (0-2) % Lymph # (Auto) (1.2-4.9) X10*3/uL Marion # (Auto) (0.1-1.2) X10*3/uL Eos # (Auto) (0.0-0.4) X10*3/uL Baso # (Auto) (0.0-0.2) X10*3/uL Abs Immat Gran (auto) (0.00-0.03) X10*3/uL Absolute Neuts (auto) (2.0-8.3) x10*3/uL Absolute Nucleated RBC (0.0-0.012) X10*3/uL Nucleated RBC % (auto) (0.0-0.2) /100WBC Sodium (135-145) mmol/L Potassium (3.3-5.1) mmol/L Chloride (96-108) mmol/L Carbon Dioxide (22-29) mmol/L Anion Gap (12-20) BUN (9-16) mg/dL Creatinine (0.5-1.4) mg/dL Estim Creat Clear Calc Estimated GFR POC Glucose 218 H (60-115) mg/dL Random Glucose (60-115) mg/dL Calcium (8.4-10.2) mg/dL Magnesium (1.6-2.6) mg/dL Total Bilirubin (0.0-1.0) mg/dL Direct Bilirubin (0.0-0.5) mg/dL AST (5-37) U/L ALT (0-40) U/L Alkaline Phosphatase (39-117) U/L Ammonia 61 H (13-55) umol/L Total Protein (6.5-8.0) g/dL Albumin (3.5-5.0) g/dL Urine Color Yellow Urine Appearance Clear Urine pH 6.5 (5.0-9.0) Ur Specific [place] <= 1.005 (1.005-1.025) Urine Protein Negative (Neg-Trace) mg/dL Urine Glucose (UA) 500 H (Negative) mg/dL Urine Ketones Negative (Negative) mg/dL Urine Blood Negative (Negative) Urine Nitrite Negative (Negative) Ur Leukocyte Esterase Negative (Negative) Acetone, Qual (Negative) <TONO Sommer - Last Filed: 09/11/22 18:30> Lab Results 09/11/22 09/11/22 09/11/22 Range/Units 19:04 19:13 19:13 WBC 5.7 (4.8-10.8) X10*3/uL RBC 5.61 (4.60-5.80) X10*6/uL Hgb 15.3 (14.0-18.0) g/dl Hct 45.2 (42.0-52.0) % MCV 80.6 (80.0-98.0) fL MCH 27.3 (27.0-33.0) pg MCHC 33.8 (31.0-36.0) g/dl RDW 14.0 (11.0-16.0) % Plt Count 182 (160-400) X10*3/uL MPV 10.7 (9.4-12.4) fL Immature Gran % (Auto) 0.4 (0.0-0.4) % Neut % (Auto) 64.4 (45-73) % Lymph % (Auto) 27.4 (20-40) % Marion % (Auto) 7.8 (2-11) % Eos % (Auto) 0.0 (0-4) % Baso % (Auto) 0.0 (0-2) % Lymph # (Auto) 1.6 (1.2-4.9) X10*3/uL Marion # (Auto) 0.4 (0.1-1.2) X10*3/uL Eos # (Auto) 0.0 (0.0-0.4) X10*3/uL Baso # (Auto) 0.0 (0.0-0.2) X10*3/uL Abs Immat Gran (auto) 0.02 (0.00-0.03) X10*3/uL Absolute Neuts (auto) 3.7 (2.0-8.3) x10*3/uL Absolute Nucleated RBC 0.000 (0.0-0.012) X10*3/uL Nucleated RBC % (auto) 0.0 (0.0-0.2) /100WBC Sodium 139 (135-145) mmol/L Potassium 4.0 (3.3-5.1) mmol/L Chloride 104 (96-108) mmol/L Carbon Dioxide 26 (22-29) mmol/L Anion Gap 13 (12-20) BUN 7 L (9-16) mg/dL Creatinine 0.86 (0.5-1.4) mg/dL Estim Creat Clear Calc 94.0 Estimated GFR > 60 POC Glucose 275 H (60-115) mg/dL Random Glucose 253 H (60-115) mg/dL Calcium 9.5 (8.4-10.2) mg/dL Magnesium 1.6 (1.6-2.6) mg/dL Total Bilirubin 0.5 (0.0-1.0) mg/dL Direct Bilirubin 0.1 (0.0-0.5) mg/dL AST 6 (5-37) U/L ALT 7 (0-40) U/L Alkaline Phosphatase 202 H (39-117) U/L Ammonia (13-55) umol/L Total Protein 6.8 (6.5-8.0) g/dL Albumin 4.2 (3.5-5.0) g/dL Urine Color Urine Appearance Urine pH (5.0-9.0) Ur Specific [place] (1.005-1.025) Urine Protein (Neg-Trace) mg/dL Urine Glucose (UA) (Negative) mg/dL Urine Ketones (Negative) mg/dL Urine Blood (Negative) Urine Nitrite (Negative) Ur Leukocyte Esterase (Negative) Acetone, Qual Negative (Negative) 09/11/22 09/11/22 09/11/22 Range/Units 19:13 19:13 22:21 WBC (4.8-10.8) X10*3/uL RBC (4.60-5.80) X10*6/uL Hgb (14.0-18.0) g/dl Hct (42.0-52.0) % MCV (80.0-98.0) fL MCH (27.0-33.0) pg MCHC (31.0-36.0) g/dl RDW (11.0-16.0) % Plt Count (160-400) X10*3/uL MPV (9.4-12.4) fL Immature Gran % (Auto) (0.0-0.4) % Neut % (Auto) (45-73) % Lymph % (Auto) (20-40) % Marion % (Auto) (2-11) % Eos % (Auto) (0-4) % Baso % (Auto) (0-2) % Lymph # (Auto) (1.2-4.9) X10*3/uL Marion # (Auto) (0.1-1.2) X10*3/uL Eos # (Auto) (0.0-0.4) X10*3/uL Baso # (Auto) (0.0-0.2) X10*3/uL Abs Immat Gran (auto) (0.00-0.03) X10*3/uL Absolute Neuts (auto) (2.0-8.3) x10*3/uL Absolute Nucleated RBC (0.0-0.012) X10*3/uL Nucleated RBC % (auto) (0.0-0.2) /100WBC Sodium (135-145) mmol/L Potassium (3.3-5.1) mmol/L Chloride (96-108) mmol/L Carbon Dioxide (22-29) mmol/L Anion Gap (12-20) BUN (9-16) mg/dL Creatinine (0.5-1.4) mg/dL Estim Creat Clear Calc Estimated GFR POC Glucose 218 H (60-115) mg/dL Random Glucose (60-115) mg/dL Calcium (8.4-10.2) mg/dL Magnesium (1.6-2.6) mg/dL Total Bilirubin (0.0-1.0) mg/dL Direct Bilirubin (0.0-0.5) mg/dL AST (5-37) U/L ALT (0-40) U/L Alkaline Phosphatase (39-117) U/L Ammonia 61 H (13-55) umol/L Total Protein (6.5-8.0) g/dL Albumin (3.5-5.0) g/dL Urine Color Yellow Urine Appearance Clear Urine pH 6.5 (5.0-9.0) Ur Specific [place] <= 1.005 (1.005-1.025) Urine Protein Negative (Neg-Trace) mg/dL Urine Glucose (UA) 500 H (Negative) mg/dL Urine Ketones Negative (Negative) mg/dL Urine Blood Negative (Negative) Urine Nitrite Negative (Negative) Ur Leukocyte Esterase Negative (Negative) Acetone, Qual (Negative) <Martha Ferrera MD - Last Filed: 09/11/22 22:46> Discharge Plan Discharge Clinical Impression: Hyperglycemia <TONO Sommer - Last Filed: 09/11/22 18:30> Patient Disposition: Home, Self-Care <TONO Sommer - Last Filed: 09/11/22 18:30> Instructions: Diabetes and Exercise (ED), Diabetic Hyperglycemia (ED) <TONO Sommer - Last Filed: 09/11/22 18:30> Additional Instructions: You are diabetic. Your blood sugar needs to be better controlled. You need to take her medication daily 2 times a day as prescribed. Please follow-up with your primary care physician tomorrow. If you have any worsening or new symptoms, please return to the emergency room or call 911 <TONO Sommer - Last Filed: 09/11/22 18:30> Prescriptions: No Action omeprazole 20 mg capsule,delayed release(DR/EC) 20 mg PO DAILY Qty: 90 0RF (DME) FreeStyle Lite Strips Strip See Rx Instructions .Route Qty: 100 1RF Rx Instructions: Use to check blood sugar twice daily: fasting and random (DME) blood-glucose meter [FreeStyle Lite Meter] Kit See Rx Instructions .Route Qty: 1 0RF Rx Instructions: Use to check blood sugar twice daily: fasting and random (DME) lancets [FreeStyle Lancets] 28 gauge misc See Rx Instructions .Route Qty: 100 1RF Rx Instructions: Use to check blood sugar twice daily: fasting and random metformin 1,000 mg tablet 1,000 mg PO BIDWMEAL Qty: 60 2RF gemfibrozil 600 mg tablet 600 mg PO BID Qty: 60 0RF tamsulosin 0.4 mg capsule 0.4 mg PO DAILY lorazepam [Ativan] 2 mg tablet 2 mg PO BEDTIME PRN polyethylene glycol 3350 17 gram/dose powder PO haloperidol 5 mg tablet PO lorazepam 1 mg tablet 1 mg PO QID PRN olanzapine 20 mg tablet PO haloperidol 10 mg tablet PO olanzapine 10 mg tablet 10 mg PO BEDTIME <TONO Sommer - Last Filed: 09/11/22 18:30>
[2022-09-11 19:12] LABS: Glucose, Whole Blood 275 mg/dL (60-115)
[2022-09-11 19:20] LABS: MANUAL DIFF FLAG NO
[2022-09-11 19:22] LABS: Hematocrit 45.2 % (42.0-52.0); Hemoglobin 15.3 g/dl (14.0-18.0); Imm Gran Abs Auto 0.02 X10*3/uL (0.00-0.03); Imm Gran Pct Auto 0.4 % (0.0-0.4); Lymphocytes Absolute Auto 1.6 X10*3/uL (1.2-4.9); Lymphocytes Percent Auto 27.4 % (20-40); Mean Corpuscular HGB Conc 33.8 g/dl (31.0-36.0); Mean Corpuscular Hemoglobin 27.3 pg (27.0-33.0); Mean Corpuscular Volume 80.6 fL (80.0-98.0); Mean Platelet Volume 10.7 fL (9.4-12.4); Monocytes Absolute Auto 0.4 X10*3/uL (0.1-1.2); Monocytes Percent Auto 7.8 % (2-11); Neutrophils Absolute Auto 3.7 x10*3/uL (2.0-8.3); Neutrophils Percent Auto 64.4 % (45-73); Platelet Count 182 X10*3/uL (160-400); Red Blood Count 5.61 X10*6/uL (4.60-5.80); White Blood Count 5.7 X10*3/uL (4.8-10.8)
[2022-09-11 19:23] LABS: Appearance Urine Clear; Color Urine Yellow; Glucose Urine UA 500 mg/dL (Negative); Leukocyte Esterase Urine Negative (Negative); Nitrite Urine Negative (Negative); PH 6.5 (5.0-9.0); Specific Gravity - Urine <= 1.005 (1.005-1.025); Urine Blood Negative (Negative); Urine Ketones Negative (Negative); Urine Protein Negative (Neg-Trace)
[2022-09-11 19:33] LABS: Ammonia 61 umol/L (13-55)
[2022-09-11 19:43] LABS: Alanine Aminotransferase 7 U/L (0-40); Albumin Level 4.2 g/dL (3.5-5.0); Alkaline Phosphatase 202 U/L (39-117); Anion Gap 13 (12-20); Aspartate Amino Transferase 6 U/L (5-37); Bilirubin Direct 0.1 mg/dL (0.0-0.5); Bilirubin Total 0.5 mg/dL (0.0-1.0); Blood Urea Nitrogen 7 mg/dL (9-16); Calcium 9.5 mg/dL (8.4-10.2); Carbon Dioxide 26 mmol/L (22-29); Chloride 104 mmol/L (96-108); Estimated Glomerular Filt Rate > 60; Glucose Random 253 mg/dL (60-115); Magnesium 1.6 mg/dL (1.6-2.6); Sodium 139 mmol/L (135-145); Total Protein 6.8 g/dL (6.5-8.0)
[2022-09-11 21:13] LABS: Acetone, serum QL Negative (Negative)
[2022-09-11 22:26] LABS: Glucose, Whole Blood 218 mg/dL (60-115)
[2022-09-11 22:44] VITALS: BP 135/85; PULSE 81; RESP 16; TEMP 36.4; O2SAT 98
== END 2022-09-11 22:58 | disposition home or self-care (01) ==
PROVIDERS: Physician Assistant; Emergency Provider Emergency Medicine; PCP Internal Medicine
DX: E11.65 Type 2 diabetes mellitus with hyperglycemia (principal); E78.5 Hyperlipidemia, unspecified; F17.210 Nicotine dependence, cigarettes, uncomplicated; Z79.899 Other long term (current) drug therapy
CPT/HCPCS: 36415; 80048; 80076; 81003; 82009; 82140; 82947; 83735; 85025; 93005; 99283; 99284

== ENCOUNTER 2023-03-05 11:44 | Outpatient (AMB) | payer OTHER, SELFPAY ==
[2023-03-05 11:50] VITALS: BP 154/72; PULSE 97; O2SAT 99; BMI 22.7
--- NOTE | 2023-03-05 11:50 | A.OFFPC_ITS ---
Vital Signs 03/05/23 11:50 Height 6 ft 1 in Weight 172 lb 2 oz BMI 22.7 BP 154/72 H Blood Pressure Location Rt brachial Position Sitting Pulse 97 Pulse Source Pulse Oximeter Pulse Oximetry (%) 99 Intake Visit Reasons: 3M. F/U-DM; NEEDS PHQ9/THRIVE Allergies clozapine [From CLOZARIL] Allergy (Unknown, Verified 03/05/23 11:50) UNKNOWN lamotrigine [Lamictal] Allergy (Unknown, Verified 03/05/23 11:50) unknown phenytoin [Dilantin] Allergy (Unknown, Verified 03/05/23 11:50) unknown Medication List - Last Reconciled 03/05/23 by Crystal Lenz MD blood sugar diagnostic (FreeStyle Lite Strips) Use to check blood sugar twice daily: fasting and random blood-glucose meter (FreeStyle Lite Meter kit) Use to check blood sugar twice daily: fasting and random gemfibrozil 600 mg PO BID haloperidol mg PO haloperidol mg PO lancets (FreeStyle Lancets) Use to check blood sugar twice daily: fasting and random lorazepam (Ativan) 2 mg PO BEDTIME PRN lorazepam 1 mg PO QID PRN metformin 1,000 mg PO BIDWMEAL olanzapine mg PO olanzapine 10 mg PO BEDTIME omeprazole 20 mg PO DAILY polyethylene glycol 3350 grams PO tamsulosin 0.4 mg PO DAILY Tobacco use date assessed: 03/05/23 Dental Screening Dental Screen Date: 03/05/23 Did you have a dental visit in the last 12 months?: Yes Did you have a dental problem in the last 6 months where you did not have access to dental care?: No Was dental information given to patient?: Patient has dentist HPI 3M. F/U-DM; NEEDS PHQ9/THRIVE HPI Details Patient is a 57-year-old gentleman came in today for his follow-up appointment Last time he was seen August of this year for physical examination He missed his regular follow-up appointment Patient have uncontrolled diabetes Last time he had hemoglobin A1c in August it was above 14 Currently is on metformin 1 g 2 times a day. His blood pressure is also slightly elevated today at 154/72, it was 135 systolic last visit we will continue to monitor. Constipation is stable with MiraLax GERD is stable with omeprazole He is to smoking but not as much she tells me. Patient is due for labs today Regular appointments were discussed with the physician office rep it is highly important that patient come in for follow-up every 3 months Especially with diabetes and now elevated blood pressure. [facility] Medical History Diabetes mellitus GERD (gastroesophageal reflux disease) Insomnia Anxiety H/O urinary frequency Benign prostatic hyperplasia with lower urinary tract symptoms Surgical History No pertinent past surgical history Family History Father No problems noted. Mother No problems noted. Social History Housing: Apartment Alcohol intake: never Patient Tobacco Use Status: Current everyday Tobacco user Tobacco use type: Cigarette Cigarette Packs Per Day: 1 Cigarettes Per Day: 20 Years Smoked: 5 e-Cigarette/Vaping Use: Never Used service: No Current occupational status: retired Cognitive needs: No Hearing needs: No Vision needs: No Questionnaire PHQ-9 Over the last 2 weeks, how often have you been bothered by any of the following problems? 1. Little interest or pleasure in doing things: not at all 2. Feeling down, depressed, or hopeless: not at all 3. Trouble falling or staying asleep, or sleeping too much: not at all 4. Feeling tired or having little energy: not at all 5. Poor appetite or overeating: not at all 6. Feeling bad about yourself - or that you are a failure or have let yourself or your family down: not at all 7. Trouble concentrating on things, such as reading the newspaper or watching television: not at all 8. Moving or speaking so slowly that other people could have noticed. Or the opposite - being so fidgety or restless that you have been moving around a lot more than usual: not at all 9. Thoughts that you would be better off or of hurting yourself in some way: not at all Total score: 0 Depression Screening Interpretation: Negative Depression Screening Done: Yes 91851 - PHQ-9 Billing: Yes Source: Developed by Drs. Pablo Mcarthur, Qing Nicole, William Clemente and colleagues, with an educational pat from [employer]. Thrive Questionnaire Date Thrive assessed: 03/05/23 I am a: Patient What is your living situation today?: I have a steady place to live Within the past 12 months, did the food you bought not last and you didn't have the money to get more?: Never true Within the past 12 months, did you worry whether your food would run out before you got money to buy more?: Never true Do you have trouble paying for medicines?: No Do you have trouble getting transportation to medical appointments?: No Do you have trouble paying your heating and electricity bill?: No Do you have trouble taking care of your child, family member or friend?: No Do you have trouble with day-to-day activities such as bathing, preparing meals, shopping, managing finances, etc.?: No Are you currently unemployed and looking for a job?: No Are you interested in more education?: No AUDIT C Alcohol Use Questionnaire (AUDIT-C) 1. How often do you have a drink containing alcohol?: Never 3. How often do you have six or more drinks on one occasion?: Never Total Score: 0 Score Reviewed/Action Taken: Yes BRIAN-7 AMB Questionnaire BRIAN-7 Date BRIAN - 7 assessed: 03/05/23 Feeling nervous, anxious, or on edge: 0 = Not at all Not being able to stop or control worryin = Not at all Worrying too much about different things: 0 = Not at all Trouble relaxin = Not at all Being so restless that it is hard to sit still: 0 = Not at all Becoming easily annoyed or irritable: 0 = Not at all Feeling afraid as if something awful might happen: 0 = Not at all Total BRIAN-7 score (0-4 normal; 5-9 mild; 10-14 moderate; 15-21 severe): 0 Source: Developed by Drs. Pablo Mcarthur, Qing Nicole, William Clemente and colleagues, with an educational pat from [employer]. BRIAN-7 Assessment Billing BRIAN-7 Assessment Tool: BRIAN-7 Assessment 90151 Review of Systems Const Denies chills and Denies fever(s) ENT Denies epistaxis and Denies nasal discharge Card Denies chest pain Resp Denies chest congestion, Denies cough and Denies hemoptysis GI Denies diarrhea and Denies nausea Skin/Breast Denies rash Neuro Reports no additional complaints Psych Reports no additional complaints Endo Reports no additional complaints Physical exam (Primary Care) Vital Signs: Last Vital Signs Pulse 97 03/05/23 11:50 BP 154/72 H 03/05/23 11:50 Pulse Ox 99 03/05/23 11:50 BMI result Body Mass Index 22.7 Tobacco/Smoking Status: Tobacco use Status Tobacco use date assessed 03/05/23 03/05/23 11:56 Patient Tobacco Use Status Current everyday Tobacco 03/05/23 11:56 Tobacco use type Cigarette 03/05/23 11:56 e-Cigarette/Vaping Use Never Used 03/05/23 11:56 PHQ-9: PHQ-9 Score PHQ-9: Total score 0 03/05/23 12:10 Depression Screening Interpretation: Negative Thrive Assessment: Date of Thrive Assessment Date Thrive assessed 03/05/23 03/05/23 12:10 Const General: cooperative, comfortable and no acute distress Orientation/consciousness: patient oriented x3 HENMT Head: Yes normocephalic Eyes General: appearance normal, both eyes and all related structures Neck Neck: Yes supple Resp Effort & Inspection: normal respiratory effort, no cough and no stridor Cardio Rhythm: regular rhythm Heart sounds: S1 normal heart sound present and S2 normal heart sound present Skin General skin exam: turgor normal Neuro General: patient oriented x3, tone normal and moves all extremities Extrem Right lower extremity: no edema Left lower extremity: no edema Assessment and Plan Assessment & Plan (1) Diabetes mellitus: Code(s): E11.9 - Type 2 diabetes mellitus without complications Qualifiers: Diabetes mellitus complication status: without complication Diabetes mellitus halfway insulin use: without halfway use Diabetes mellitus type: type 2 (2) Tobacco abuse: Code(s): Z72.0 - Tobacco use (3) Lipid disorder: Code(s): E78.9 - Disorder of lipoprotein metabolism, unspecified (4) Chronic GERD: Code(s): K21.9 - Gastro-esophageal reflux disease without esophagitis (5) Constipation by delayed colonic transit: Code(s): K59.01 - Slow transit constipation (6) Benign prostatic hyperplasia with lower urinary tract symptoms: Code(s): N40.1 - Benign prostatic hyperplasia with lower urinary tract symptoms Qualifiers: Lower urinary tract symptom detail: urinary frequency Qualified Code(s): N40.1 - Benign prostatic hyperplasia with lower urinary tract symptoms; R35.0 - Frequency of micturition Plan Patient is a 57-year-old gentleman came in today for his follow-up appointment Last time he was seen August of this year for physical examination He missed his regular follow-up appointment Patient have uncontrolled diabetes Last time he had hemoglobin A1c in August it was above 14 Currently is on metformin 1 g 2 times a day. His blood pressure is also slightly elevated today at 154/72, it was 135 systolic last visit we will continue to monitor. Constipation is stable with MiraLax GERD is stable with omeprazole He is to smoking but not as much she tells me. Patient is due for labs today Regular appointments were discussed with the physician office rep it is highly important that patient come in for follow-up every 3 months Especially with diabetes and now elevated blood pressure. Orders: Orders LDL Cholesterol Direct Today E11.9 - Type 2 diabetes mellitus without complications, E78.9 - Disorder of lipoprotein metabolism, unspecified, K21.9 - Gastro-esophageal reflux disease without esophagitis, Z72.0 - Tobacco use TSH reflex Free T4 Today E11.9 - Type 2 diabetes mellitus without complications, E78.9 - Disorder of lipoprotein metabolism, unspecified, K21.9 - Gastro- esophageal reflux disease without esophagitis, Z72.0 - Tobacco use Hemoglobin A1c Today E11.9 - Type 2 diabetes mellitus without complications, E78.9 - Disorder of lipoprotein metabolism, unspecified, K21.9 - Gastro-esophageal reflux disease without esophagitis, Z72.0 - Tobacco use Complete Blood Count Auto Diff Today E11.9 - Type 2 diabetes mellitus without complications, E78.9 - Disorder of lipoprotein metabolism, unspecified, K21.9 - Gastro-esophageal reflux disease without esophagitis, Z72.0 - Tobacco use Comprehensive Met. 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
== END 2023-03-05 12:17 | disposition home or self-care (01) ==
PROVIDERS: PCP Internal Medicine; Visit Provider Internal Medicine
DX: E11.9 Type 2 diabetes mellitus without complications (principal); Z72.0 Tobacco use; E78.9 Disorder of lipoprotein metabolism, unspecified; K21.9 Gastro-esophageal reflux disease without esophagitis; K59.01 Slow transit constipation; N40.1 Benign prostatic hyperplasia with lower urinary tract symptoms; R35.0 Frequency of micturition
CPT/HCPCS: 99214

== ENCOUNTER 2023-03-05 12:16 | Outpatient (REF) | payer OTHER, SELFPAY ==
[2023-03-05 13:36] LABS: MANUAL DIFF FLAG NO
[2023-03-05 14:11] LABS: Basophils Percent Auto 0.1 % (0-2); Eosinophils Percent Auto 0.1 % (0-4); Hematocrit 47.3 % (42.0-52.0); Imm Gran Abs Auto 0.03 X10*3/uL (0.00-0.03); Imm Gran Pct Auto 0.4 % (0.0-0.4); Lymphocytes Absolute Auto 1.4 X10*3/uL (1.2-4.9); Lymphocytes Percent Auto 21.4 % (20-40); Mean Corpuscular HGB Conc 33.8 g/dl (31.0-36.0); Mean Corpuscular Hemoglobin 28.2 pg (27.0-33.0); Mean Corpuscular Volume 83.4 fL (80.0-98.0); Mean Platelet Volume 11.3 fL (9.4-12.4); Monocytes Absolute Auto 0.5 X10*3/uL (0.1-1.2); Monocytes Percent Auto 7.1 % (2-11); Neutrophils Absolute Auto 4.8 x10*3/uL (2.0-8.3); Neutrophils Percent Auto 70.9 % (45-73); Platelet Count 222 X10*3/uL (160-400); Red Blood Count 5.67 X10*6/uL (4.60-5.80); Red Cell Distribution Width 13.1 % (11.0-16.0); White Blood Count 6.7 X10*3/uL (4.8-10.8)
[2023-03-05 14:12] LABS: Estimated Average Glucose 114 mg/dL; Hemoglobin A1c % 5.6 % (<6.0)
[2023-03-05 14:27] LABS: Creatinine Urine 21.11 mg/dL; Microalbumin Urine < 5.0 mg/L
[2023-03-05 14:38] LABS: Alanine Aminotransferase 11 U/L (0-40); Albumin Level 4.5 g/dL (3.5-5.0); Alkaline Phosphatase 189 U/L (39-117); Anion Gap 15 (12-20); Aspartate Amino Transferase 10 U/L (5-37); Bilirubin Total 0.3 mg/dL (0.0-1.0); Blood Urea Nitrogen 8 mg/dL (9-16); Calcium 10.4 mg/dL (8.4-10.2); Carbon Dioxide 25 mmol/L (22-29); Chloride 104 mmol/L (96-108); Estimated Glomerular Filt Rate > 60; Glucose Random 138 mg/dL (60-115); Potassium 4.1 mmol/L (3.3-5.1); Sodium 140 mmol/L (135-145); Total Protein 7.9 g/dL (6.5-8.0)
[2023-03-06 17:28] LABS: LDL Cholesterol Direct 133 mg/dL (<100)
== END 2023-03-05 12:17 | disposition home or self-care (01) ==
LOC: HO.HMGCLDS 12:16
PROVIDERS: PCP Internal Medicine; Visit Provider Internal Medicine
DX: Z00.01 Encounter for general adult medical examination with abnormal findings (principal); E11.9 Type 2 diabetes mellitus without complications; E78.9 Disorder of lipoprotein metabolism, unspecified; K21.9 Gastro-esophageal reflux disease without esophagitis; Z72.0 Tobacco use
CPT/HCPCS: 36415; 80053; 82043; 82570; 83036; 83721; 84443; 85025

== ENCOUNTER 2023-06-04 11:16 | Outpatient (AMB) | payer OTHER, SELFPAY ==
[2023-06-04 11:19] VITALS: BP 152/78; PULSE 117; O2SAT 97; BMI 23.3
--- NOTE | 2023-06-04 11:19 | A.OFFPC_ITS ---
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 Accompanied by: Unknown Allergies clozapine [From CLOZARIL] Allergy (Unknown, Verified 06/04/23 11:22) UNKNOWN lamotrigine [Lamictal] Allergy (Unknown, Verified 06/04/23 11:22) unknown phenytoin [Dilantin] Allergy (Unknown, Verified 06/04/23 11:22) unknown Medication List - Last Reconciled 06/04/23 by Crystal Lenz MD blood sugar diagnostic (FreeStyle Lite Strips) Use to check blood sugar twice daily: fasting and random blood-glucose meter (FreeStyle Lite Meter kit) Use to check blood sugar twice daily: fasting and random gemfibrozil 600 mg PO BID haloperidol mg PO haloperidol mg PO lancets (FreeStyle Lancets) Use to check blood sugar twice daily: fasting and random lorazepam (Ativan) 2 mg PO BEDTIME PRN lorazepam 1 mg PO QID PRN metformin 1,000 mg PO BIDWMEAL olanzapine mg PO olanzapine 10 mg PO BEDTIME omeprazole 20 mg PO DAILY polyethylene glycol 3350 grams PO tamsulosin 0.4 mg PO DAILY Tobacco use date assessed: 06/04/23 Dental Screening Dental Screen Date: 06/04/23 Did you have a dental visit in the last 12 months?: Yes Did you have a dental problem in the last 6 months where you did not have access to dental care?: No Was dental information given to patient?: Patient has dentist HPI 2 HPI0 Details Patient is a 57-year-old gentleman came in today for his follow-up appointment Complaining of chest pain off and on patient is very vague about his history He tells me that sometimes he feels pain but he is touching all over his chest which last few minutes and then gets better He continued to smoke however trying to cut down. We did the EKG today which shows tachycardia with RR pattern in V1 V2 as well as aVL Patient declined to see canvas cutter or to have further testing like echocardiogram or stress test laboratory animal caretaker is present during this visit, she is aware, I have told her that if he changes his mind let me know. I have also ordered chest x-ray He is due for labs as well His blood pressure continued to be elevated I am starting him on lisinopril 5 mg once a day Diabetes mellitus: Last hemoglobin A1c was checked in February it was 5.6 Currently is on metformin 1 g 2 times a day. Constipation is stable with MiraLax GERD is stable with omeprazole Patient is to return in 3 week for blood pressure monitoring at to go over labs. [facility] Medical History Diabetes mellitus GERD (gastroesophageal reflux disease) Insomnia Anxiety H/O urinary frequency Benign prostatic hyperplasia with lower urinary tract symptoms Surgical History No pertinent past surgical history Family History Father No problems noted. Mother No problems noted. Social History Housing: Apartment Alcohol intake: never Patient Tobacco Use Status: Current everyday Tobacco user Tobacco use type: Cigarette Cigarette Packs Per Day: 1 Cigarettes Per Day: 20 Years Smoked: 5 e-Cigarette/Vaping Use: Never Used service: No Current occupational status: retired Cognitive needs: No Hearing needs: No Vision needs: No Questionnaire PHQ-9 Over the last 2 weeks, how often have you been bothered by any of the following problems? 1. Little interest or pleasure in doing things: not at all 2. Feeling down, depressed, or hopeless: not at all 3. Trouble falling or staying asleep, or sleeping too much: not at all 4. Feeling tired or having little energy: not at all 5. Poor appetite or overeating: not at all 6. Feeling bad about yourself - or that you are a failure or have let yourself or your family down: not at all 7. Trouble concentrating on things, such as reading the newspaper or watching television: not at all 8. Moving or speaking so slowly that other people could have noticed. Or the opposite - being so fidgety or restless that you have been moving around a lot more than usual: not at all 9. Thoughts that you would be better off or of hurting yourself in some way: not at all Total score: 0 Depression Screening Interpretation: Negative Depression Screening Done: Yes 96204 - PHQ-9 Billing: Yes Source: Developed by Drs. Pablo Mcarthur, William Umanzor and colleagues, with an educational pat from [employer]. Thrive Questionnaire Date Thrive assessed: 06/04/23 I am a: Patient What is your living situation today?: I have a steady place to live Within the past 12 months, did the food you bought not last and you didn't have the money to get more?: Never true Within the past 12 months, did you worry whether your food would run out before you got money to buy more?: Never true Do you have trouble paying for medicines?: No Do you have trouble getting transportation to medical appointments?: No Do you have trouble paying your heating and electricity bill?: No Do you have trouble taking care of your child, family member or friend?: No Do you have trouble with day-to-day activities such as bathing, preparing meals, shopping, managing finances, etc.?: No Are you currently unemployed and looking for a job?: No Are you interested in more education?: No Please select the resources that you would like help with: None Currently or been in a relationship where the following occur: no concerns reported THRIVE Score: 0 BRIAN-7 AMB Questionnaire BRIAN-7 Date BRIAN - 7 assessed: 06/04/23 Feeling nervous, anxious, or on edge: 0 = Not at all Not being able to stop or control worryin = Not at all Worrying too much about different things: 0 = Not at all Trouble relaxin = Not at all Being so restless that it is hard to sit still: 0 = Not at all Becoming easily annoyed or irritable: 0 = Not at all Feeling afraid as if something awful might happen: 0 = Not at all Total BRIAN-7 score (0-4 normal; 5-9 mild; 10-14 moderate; 15-21 severe): 0 Source: Developed by Drs. Pablo Mcarthur, William Umanzor and colleagues, with an educational pat from [employer]. BRIAN-7 Assessment Billing BRIAN-7 Assessment Tool: BRIAN-7 Assessment 22713 Review of Systems Const Denies chills and Denies fever(s) ENT Denies epistaxis and Denies nasal discharge Resp Denies chest congestion, Denies cough and Denies hemoptysis GI Denies diarrhea and Denies nausea Skin/Breast Denies rash Neuro Reports no additional complaints Psych Reports no additional complaints Endo Reports no additional complaints Physical exam (Primary Care) Vital Signs: Last Vital Signs Pulse 117 H 06/04/23 11:19 BP 152/78 H 06/04/23 11:19 Pulse Ox 97 06/04/23 11:19 Oxygen Delivery Method Room Air 06/04/23 11:19 BMI result Body Mass Index 23.3 Tobacco/Smoking Status: Tobacco use Status Tobacco use date assessed 06/04/23 06/04/23 11:26 Patient Tobacco Use Status Current everyday Tobacco 06/04/23 11:20 Tobacco use type Cigarette 06/04/23 11:20 e-Cigarette/Vaping Use Never Used 06/04/23 11:20 PHQ-9: PHQ-9 Score PHQ-9: Total score 0 06/04/23 11:54 Depression Screening Interpretation: Negative Thrive Assessment: Date of Thrive Assessment Date Thrive assessed 06/04/23 06/04/23 11:26 Currently or been in a relationship where the following occur: no concerns reported Const General: cooperative, comfortable and no acute distress Orientation/consciousness: patient oriented x3 HENMT Head: Yes normocephalic Eyes General: appearance normal, both eyes and all related structures Neck Neck: Yes supple Resp Effort & Inspection: normal respiratory effort, no cough and no stridor Cardio Other: Rhythm: regular rhythm Heart sounds: S1 normal heart sound present and S2 normal heart sound present Skin General skin exam: turgor normal Neuro General: patient oriented x3, tone normal and moves all extremities Extrem Right lower extremity: no edema Left lower extremity: no edema Assessment and Plan Assessment & Plan (1) Chest pain: Code(s): R07.9 - Chest pain, unspecified Qualifiers: Chest pain type: other chest pain Qualified Code(s): R07.89 - Other chest pain (2) Diabetes mellitus: Code(s): E11.9 - Type 2 diabetes mellitus without complications Qualifiers: Diabetes mellitus complication status: without complication Diabetes mellitus fci insulin use: without fci use Diabetes mellitus type: t ype 2 Qualified Code(s): E11.9 - Type 2 diabetes mellitus without complications (3) Hypertension, essential: Code(s): I10 - Essential (primary) hypertension (4) Lipid disorder: Code(s): E78.9 - Disorder of lipoprotein metabolism, unspecified (5) Chronic GERD: Code(s): K21.9 - Gastro-esophageal reflux disease without esophagitis (6) Impaired fasting blood sugar: Code(s): R73.01 - Impaired fasting glucose (7) Tobacco abuse: Code(s): Z72.0 - Tobacco use (8) Constipation by delayed colonic transit: Code(s): K59.01 - Slow transit constipation (9) Benign prostatic hyperplasia with lower urinary tract symptoms: Code(s): N40.1 - Benign prostatic hyperplasia with lower urinary tract symptoms Qualifiers: Lower urinary tract symptom detail: urinary frequency Qualified Code(s): N40.1 - Benign prostatic hyperplasia with lower urinary tract symptoms; R35.0 - Frequency of micturition Plan Patient is a 57-year-old gentleman came in today for his follow-up appointment Complaining of chest pain off and on patient is very vague about his history He tells me that sometimes he feels pain but he is touching all over his chest which last few minutes and then gets better He continued to smoke however trying to cut down. We did the EKG today which shows tachycardia with RR pattern in V1 V2 as well as aVL Patient declined to see canvas cutter or to have further testing like echocardiogram or stress test laboratory animal caretaker is present during this visit, she is aware, I have told her that if he changes his mind let me know. I have also ordered chest x-ray He is due for labs as well His blood pressure continued to be elevated I am starting him on lisinopril 5 mg once a day Diabetes mellitus: Last hemoglobin A1c was checked in February it was 5.6 Currently is on metformin 1 g 2 times a day. Constipation is stable with MiraLax GERD is stable with omeprazole Patient is to return in 3 week for blood pressure monitoring at to go over labs. Orders: Orders 2 Complete Blood Count Auto Diff Today E11.9 - Type 2 diabetes mellitus without complications, E78.9 - Disorder of lipoprotein metabolism, unspecified, I10 - Essential (primary) hypertension, K21.9 - Gastro-esophageal reflux disease without esophagitis, R73.01 - Impaired fasting glucose, Z72.0 - Tobacco use Comprehensive Met. Panel Today E11.9 - Type 2 diabetes mellitus without complications, E78.9 - Disorder of lipoprotein metabolism, unspecified, I10 - Essential (primary) hypertension, K21.9 - Gastro-esophageal reflux disease without esophagitis, R73.01 - Impaired fasting glucose, Z72.0 - Tobacco use LDL Cholesterol Direct Today E11.9 - Type 2 diabetes mellitus without complications, E78.9 - Disorder of lipoprotein metabolism, unspecified, I10 - Essential (primary) hypertension, K21.9 - Gastro-esophageal reflux disease without esophagitis, R73.01 - Impaired fasting glucose, Z72.0 - Tobacco use Hemoglobin A1c Today E11.9 - Type 2 diabetes mellitus without complications, E78.9 - Disorder of lipoprotein metabolism, unspecified, I10 - Essential (primary) hypertension, K21.9 - Gastro-esophageal reflux disease without esophagitis, R73.01 - Impaired fasting glucose, Z72.0 - Tobacco use TSH reflex Free T4 Today E11.9 - Type 2 diabetes mellitus without complications, E78.9 - Disorder of lipoprotein metabolism, unspecified, I10 - Essential (primary) hypertension, K21.9 - Gastro-esophageal reflux disease without esophagitis, R73.01 - Impaired fasting glucose, Z72.0 - Tobacco use AMB EKG-In Office Today R07.9 - Chest pain, unspecified Medications: New 2 lisinopril 5 mg PO .qhs 30 tabs 0RF High blood pressure Coding Level of Care Code Est Pt Level 5 (48494) Diagnoses Other chest pain R07.89 Chest pain type: other chest pain Type 2 diabetes mellitus without complication, without long-term current use of insulin E11.9 Diabetes mellitus complication status: without complication Diabetes mellitus fci insulin use: without fci use Diabetes mellitus type: type 2 Hypertension, essential I10 Lipid disorder E78.9 Chronic GERD K21.9 Impaired fasting blood sugar R73.01 Tobacco abuse Z72.0 Constipation by delayed colonic transit K59.01 Benign prostatic hyperplasia with urinary frequency N40.1; R35.0 Lower urinary tract symptom detail: urinary frequency Additional Codes BRIAN-7 Assessment Billing - BRIAN-7 Assessment Tool: BRIAN-7 Assessment [id number] ([id number]) Time Spent (min) 41 Comment 5 pre visit, 20 with patient, 7 minute EKG, 5 minute charting, 4 coordination of care
== END 2023-06-04 12:20 | disposition home or self-care (01) ==
PROVIDERS: PCP Internal Medicine; Visit Provider Internal Medicine
DX: E11.9 Type 2 diabetes mellitus without complications (principal); R07.89 Other chest pain; I10 Essential (primary) hypertension; E78.9 Disorder of lipoprotein metabolism, unspecified; K21.9 Gastro-esophageal reflux disease without esophagitis; R73.01 Impaired fasting glucose; Z72.0 Tobacco use; K59.01 Slow transit constipation; N40.1 Benign prostatic hyperplasia with lower urinary tract symptoms; R35.0 Frequency of micturition
CPT/HCPCS: 99215

== ENCOUNTER 2023-06-04 12:02 | Outpatient (REF) | payer OTHER, SELFPAY ==
[2023-06-04 13:31] LABS: MANUAL DIFF FLAG NO
[2023-06-04 13:45] LABS: Basophils Percent Auto 0.1 % (0-2); Hematocrit 43.4 % (42.0-52.0); Hemoglobin 14.5 g/dl (14.0-18.0); Imm Gran Abs Auto 0.07 X10*3/uL (0.00-0.03); Imm Gran Pct Auto 0.8 % (0.0-0.4); Lymphocytes Absolute Auto 2.1 X10*3/uL (1.2-4.9); Lymphocytes Percent Auto 24.7 % (20-40); Mean Corpuscular HGB Conc 33.4 g/dl (31.0-36.0); Mean Corpuscular Hemoglobin 27.6 pg (27.0-33.0); Mean Corpuscular Volume 82.7 fL (80.0-98.0); Mean Platelet Volume 10.5 fL (9.4-12.4); Monocytes Absolute Auto 0.6 X10*3/uL (0.1-1.2); Monocytes Percent Auto 7.2 % (2-11); Neutrophils Absolute Auto 5.6 x10*3/uL (2.0-8.3); Neutrophils Percent Auto 67.2 % (45-73); Platelet Count 308 X10*3/uL (160-400); Red Blood Count 5.25 X10*6/uL (4.60-5.80); White Blood Count 8.3 X10*3/uL (4.8-10.8)
[2023-06-04 14:03] LABS: Estimated Average Glucose 117 mg/dL; Hemoglobin A1c % 5.7 % (<6.0)
[2023-06-04 14:35] LABS: Alanine Aminotransferase 15 U/L (0-40); Albumin Level 4.7 g/dL (3.5-5.0); Alkaline Phosphatase 142 U/L (39-117); Anion Gap 13 (12-20); Aspartate Amino Transferase 13 U/L (5-37); Bilirubin Total 0.2 mg/dL (0.0-1.0); Blood Urea Nitrogen 9 mg/dL (9-16); Calcium 10.3 mg/dL (8.4-10.2); Carbon Dioxide 25 mmol/L (22-29); Chloride 106 mmol/L (96-108); Estimated Glomerular Filt Rate > 60; Glucose Random 121 mg/dL (60-115); Sodium 140 mmol/L (135-145); Total Protein 8.3 g/dL (6.5-8.0)
[2023-06-04 14:37] LABS: TSH reflex Free T4 0.61 uIU/mL (0.32-4.0)
[2023-06-06 13:04] LABS: LDL Cholesterol Direct 137 mg/dL (<100)
== END 2023-06-04 12:03 | disposition home or self-care (01) ==
LOC: HO.HMGCLDS 12:02
PROVIDERS: PCP Internal Medicine; Visit Provider Internal Medicine
DX: I10 Essential (primary) hypertension (principal); E11.9 Type 2 diabetes mellitus without complications; K21.9 Gastro-esophageal reflux disease without esophagitis; E78.9 Disorder of lipoprotein metabolism, unspecified; Z72.0 Tobacco use
CPT/HCPCS: 36415; 80053; 83036; 83721; 84443; 85025

== ENCOUNTER 2023-12-03 09:55 | Outpatient (AMB) | payer OTHER, SELFPAY ==
[2023-12-03 10:01] VITALS: BP 134/70; PULSE 110; O2SAT 97; BMI 22.7
--- NOTE | 2023-12-03 10:01 | A.OFFPC_ITS ---
Vital Signs 12/03/23 10:01 Height 6 ft 1 in Weight 172 lb BMI 22.7 BP 134/70 Blood Pressure Location Rt brachial Position Sitting Pulse 110 H Pulse Source Pulse Oximeter Pulse Oximetry (%) 97 Oxygen Delivery Method Room Air Intake Visit Reasons: 9M Allergies clozapine [From CLOZARIL] Allergy (Unknown, Verified 12/03/23 10:01) UNKNOWN lamotrigine [Lamictal] Allergy (Unknown, Verified 12/03/23 10:01) unknown phenytoin [Dilantin] Allergy (Unknown, Verified 12/03/23 10:01) unknown Medication List - Last Reconciled 12/03/23 by Crystal Lenz MD blood sugar diagnostic (FreeStyle Lite Strips) Use to check blood sugar twice daily: fasting and random blood-glucose meter (FreeStyle Lite Meter kit) Use to check blood sugar twice daily: fasting and random gemfibrozil 600 mg PO BID haloperidol mg PO haloperidol mg PO lancets (FreeStyle Lancets) Use to check blood sugar twice daily: fasting and random lisinopril 5 mg PO .qhs lorazepam (Ativan) 2 mg PO BEDTIME PRN lorazepam 1 mg PO QID PRN metformin 1,000 mg PO BIDWMEAL olanzapine mg PO olanzapine 10 mg PO BEDTIME omeprazole 20 mg PO DAILY polyethylene glycol 3350 grams PO tamsulosin 0.4 mg PO DAILY Tobacco use date assessed: 12/03/23 Dental Screening Dental Screen Date: 12/03/23 Did you have a dental visit in the last 12 months?: No Did you have a dental problem in the last 6 months where you did not have access to dental care?: No Was dental information given to patient?: No HPI 9M HPI Details Patient is a 58-year-old gentleman came in today for his follow-up appointment 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 Hemoglobin A1c has been stable Constipation is stable with MiraLax GERD is stable with omeprazole Follow-up 3 months PFS Medical History Diabetes mellitus GERD (gastroesophageal reflux disease) Insomnia Anxiety H/O urinary frequency Benign prostatic hyperplasia with lower urinary tract symptoms Surgical History No pertinent past surgical history Family History Father No problems noted. Mother No problems noted. Social History Housing: Apartment Alcohol intake: never Patient Tobacco Use Status: Current everyday Tobacco user Tobacco use type: Cigarette Cigarette Packs Per Day: 1 Cigarettes Per Day: 20 Years Smoked: 5 e-Cigarette/Vaping Use: Never Used service: No Current occupational status: retired Cognitive needs: No Hearing needs: No Vision needs: No Questionnaire PHQ-9 Over the last 2 weeks, how often have you been bothered by any of the following problems? 1. Little interest or pleasure in doing things: not at all 2. Feeling down, depressed, or hopeless: not at all 3. Trouble falling or staying asleep, or sleeping too much: not at all 4. Feeling tired or having little energy: not at all 5. Poor appetite or overeating: not at all 6. Feeling bad about yourself - or that you are a failure or have let yourself or your family down: not at all 7. Trouble concentrating on things, such as reading the newspaper or watching television: not at all 8. Moving or speaking so slowly that other people could have noticed. Or the opposite - being so fidgety or restless that you have been moving around a lot more than usual: not at all 9. Thoughts that you would be better off or of hurting yourself in some way: not at all Total score: 0 Depression Screening Interpretation: Negative Depression Screening Done: Yes 89927 - PHQ-9 Billing: Yes Source: Developed by Drs. Pablo Mcarthur, Qing Nicole, William Clemente and colleagues, with an educational pat from [employer]. Thrive Questionnaire Date Thrive assessed: 12/03/23 AUDIT C Alcohol Use Questionnaire (AUDIT-C) 1. How often do you have a drink containing alcohol?: Never 3. How often do you have six or more drinks on one occasion?: Never Total Score: 0 Score Reviewed/Action Taken: Yes BRIAN-7 AMB Questionnaire BRIAN-7 Date BRIAN - 7 assessed: 12/03/23 Feeling nervous, anxious, or on edge: 0 = Not at all Not being able to stop or control worryin = Not at all Worrying too much about different things: 0 = Not at all Trouble relaxin = Not at all Being so restless that it is hard to sit still: 0 = Not at all Becoming easily annoyed or irritable: 0 = Not at all Feeling afraid as if something awful might happen: 0 = Not at all Total BRIAN-7 score (0-4 normal; 5-9 mild; 10-14 moderate; 15-21 severe): 0 Source: Developed by Drs. Pablo Mcarthur, Qing Nicole, William Clemente and colleagues, with an educational pat from [employer]. BRIAN-7 Assessment Billing BRIAN-7 Assessment Tool: BRIAN-7 Assessment 45293 Review of Systems Const Denies chills and Denies fever(s) ENT Denies epistaxis and Denies nasal discharge Card Denies chest pain Resp Denies chest congestion, Denies cough and Denies hemoptysis GI Denies diarrhea and Denies nausea Skin/Breast Denies rash Neuro Reports no additional complaints Psych Reports no additional complaints Endo Reports no additional complaints Physical exam (Primary Care) Vital Signs: Last Vital Signs Pulse 110 H 12/03/23 10:01 BP 134/70 12/03/23 10:01 Pulse Ox 97 12/03/23 10:01 Oxygen Delivery Method Room Air 12/03/23 10:01 BMI result Body Mass Index 22.7 Tobacco/Smoking Status: Tobacco use Status Tobacco use date assessed 12/03/23 12/03/23 10:03 Patient Tobacco Use Status Current everyday Tobacco 12/03/23 10:03 Tobacco use type Cigarette 12/03/23 10:03 e-Cigarette/Vaping Use Never Used 12/03/23 10:03 PHQ-9: PHQ-9 Score PHQ-9: Total score 0 12/03/23 10:26 Depression Screening Interpretation: Negative Thrive Assessment: Date of Thrive Assessment Date Thrive assessed 12/03/23 12/03/23 10:06 Const General: cooperative, comfortable and no acute distress Orientation/consciousness: patient oriented x3 HENMT Head: Yes normocephalic Eyes General: appearance normal, both eyes and all related structures Neck Neck: Yes supple Resp Effort & Inspection: normal respiratory effort, no cough and no stridor Cardio Rhythm: regular rhythm Heart sounds: S1 normal heart sound present and S2 normal heart sound present Skin General skin exam: turgor normal Neuro General: patient oriented x3, tone normal and moves all extremities Extrem Right lower extremity: no edema Left lower extremity: no edema Assessment and Plan Assessment & Plan (1) Diabetes mellitus: Code(s): E11.9 - Type 2 diabetes mellitus without complications Qualifiers: Diabetes mellitus complication status: without complication 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 Diabetes mellitus type: type 2 Qualified Code(s): E11.9 - Type 2 diabetes mellitus without complications (2) Hypertension, essential: Code(s): I10 - Essential (primary) hypertension (3) Tobacco abuse: Code(s): Z72.0 - Tobacco use (4) Constipation by delayed colonic transit: Code(s): K59.01 - Slow transit constipation (5) Chronic GERD: Code(s): K21.9 - Gastro-esophageal reflux disease without esophagitis (6) Lipid disorder: Code(s): E78.9 - Disorder of lipoprotein metabolism, unspecified (7) Benign prostatic hyperplasia with lower urinary tract symptoms: Code(s): N40.1 - Benign prostatic hyperplasia with lower urinary tract symptoms Qualifiers: Lower urinary tract symptom detail: urinary frequency Qualified Code(s): N40.1 - Benign prostatic hyperplasia with lower urinary tract symptoms; R35.0 - Frequency of micturition Plan Patient is a 58-year-old gentleman came in today for his follow-up appointment 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 Hemoglobin A1c has been stable Constipation is stable with MiraLax GERD is stable with omeprazole BPH management through Dr. Partida's office Follow-up 3 months Orders: Orders Hemoglobin A1c Today E11.9 - Type 2 diabetes mellitus without complications, E78.9 - Disorder of lipoprotein metabolism, unspecified, I10 - Essential (primary) hypertension, K21.9 - Gastro-esophageal reflux disease without esophagitis, K59.01 - Slow transit constipation, Z72.0 - Tobacco use Complete Blood Count Auto Diff Today E11.9 - Type 2 diabetes mellitus without complications, E78.9 - Disorder of lipoprotein metabolism, unspecified, I10 - Essential (primary) hypertension, K21.9 - Gastro-esophageal reflux disease without esophagitis, K59.01 - Slow transit constipation, Z72.0 - Tobacco use Comprehensive Met. Panel Today E11.9 - Type 2 diabetes mellitus without complications, E78.9 - Disorder of lipoprotein metabolism, unspecified, I10 - Essential (primary) hypertension, K21.9 - Gastro-esophageal reflux disease without esophagitis, K59.01 - Slow transit constipation, Z72.0 - Tobacco use Microalbumin, Random (w Creat) Today E11.9 - Type 2 diabetes mellitus without complications, E78.9 - Disorder of lipoprotein metabolism, unspecified, I10 - Essential (primary) hypertension, K21.9 - Gastro-esophageal reflux disease without esophagitis, K59.01 - Slow transit constipation, Z72.0 - Tobacco use LDL Cholesterol Direct Today E11.9 - Type 2 diabetes mellitus without complications, E78.9 - Disorder of lipoprotein metabolism, unspecified, I10 - Essential (primary) hypertension, K21.9 - Gastro-esophageal reflux disease without esophagitis, K59.01 - Slow transit constipation, Z72.0 - Tobacco use TSH reflex Free T4 Today E11.9 - Type 2 diabetes mellitus without complications, E78.9 - Disorder of lipoprotein metabolism, unspecified, I10 - Essential (primary) hypertension, K21.9 - Gastro-esophageal reflux disease without esophagitis, K59.01 - Slow transit constipation, Z72.0 - Tobacco use Prostate Specific Antigen Today N40.1 - Benign prostatic hyperplasia with lower urinary tract symptoms, R35.0 - Frequency of micturition Coding Level of Care Code Est Pt Level 4 (33310) Complex EM visit Add On G2211 Diagnoses Type 2 diabetes mellitus without complication, without long-term current use of insulin E11.9 Diabetes mellitus complication status: without complication 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
== END 2023-12-03 10:50 | disposition home or self-care (01) ==
PROVIDERS: PCP Internal Medicine; Visit Provider Internal Medicine
DX: E11.9 Type 2 diabetes mellitus without complications (principal); I10 Essential (primary) hypertension; Z72.0 Tobacco use; K59.01 Slow transit constipation; K21.9 Gastro-esophageal reflux disease without esophagitis; E78.9 Disorder of lipoprotein metabolism, unspecified; N40.1 Benign prostatic hyperplasia with lower urinary tract symptoms; R35.0 Frequency of micturition
CPT/HCPCS: 99214; G2211

== ENCOUNTER 2024-05-24 10:19 | Outpatient (REF) | payer OTHER, SELFPAY ==
[2024-05-24 13:04] LABS: MANUAL DIFF FLAG NO
[2024-05-24 13:16] LABS: Basophils Percent Auto 0.2 % (0-2); Hematocrit 38.4 % (42.0-52.0); Hemoglobin 13.1 g/dl (14.0-18.0); Imm Gran Abs Auto 0.03 X10*3/uL (0.00-0.03); Imm Gran Pct Auto 0.6 % (0.0-0.4); Lymphocytes Absolute Auto 1.5 X10*3/uL (1.2-4.9); Lymphocytes Percent Auto 29.5 % (20-40); Mean Corpuscular HGB Conc 34.1 g/dl (31.0-36.0); Mean Corpuscular Volume 82.1 fL (80.0-98.0); Mean Platelet Volume 11.2 fL (9.4-12.4); Monocytes Absolute Auto 0.4 X10*3/uL (0.1-1.2); Monocytes Percent Auto 7.9 % (2-11); Neutrophils Absolute Auto 3.2 x10*3/uL (2.0-8.3); Neutrophils Percent Auto 61.8 % (45-73); Platelet Count 226 X10*3/uL (160-400); Red Blood Count 4.68 X10*6/uL (4.60-5.80); Red Cell Distribution Width 12.8 % (11.0-16.0); White Blood Count 5.2 X10*3/uL (4.8-10.8)
[2024-05-24 13:28] LABS: Estimated Average Glucose 117 mg/dL; Hemoglobin A1C 132.8329 umol/L; Hemoglobin A1c % 5.7 % (<6.0); Total Hemoglobin (HGBA1C) 3398.8647 umol/L
[2024-05-24 13:38] LABS: Creatinine Urine 115.34 mg/dL; Microalbum/Creatinine Ratio Ur 7.8 ug/mg cr (<30)
[2024-05-24 13:46] LABS: Alanine Aminotransferase 13 U/L (0-40); Albumin Level 4.7 g/dL (3.5-5.0); Alkaline Phosphatase 191 U/L (39-117); Anion Gap 13 (12-20); Aspartate Amino Transferase 16 U/L (5-37); Bilirubin Total 0.3 mg/dL (0.0-1.0); Blood Urea Nitrogen 9 mg/dL (9-16); Calcium 10.4 mg/dL (8.4-10.2); Carbon Dioxide 22 mmol/L (22-29); Chloride 111 mmol/L (96-108); Estimated Glomerular Filt Rate > 60; Glucose Random 112 mg/dL (60-115); Potassium 4.4 mmol/L (3.3-5.1); Sodium 142 mmol/L (135-145); Total Protein 8.1 g/dL (6.5-8.0)
[2024-05-24 13:58] LABS: Prostate Specific Antigen 0.85 ng/mL (<0.05-4.0)
[2024-05-24 13:59] LABS: TSH reflex Free T4 0.66 uIU/mL (0.32-4.0)
[2024-05-25 17:18] LABS: LDL Cholesterol Direct 148 mg/dL (<100)
== END 2024-05-24 10:20 | disposition home or self-care (01) ==
LOC: HO.HMGCLDS 10:19
PROVIDERS: PCP Internal Medicine; Visit Provider Internal Medicine
DX: E11.9 Type 2 diabetes mellitus without complications (principal); I10 Essential (primary) hypertension; Z72.0 Tobacco use; K59.01 Slow transit constipation; K21.9 Gastro-esophageal reflux disease without esophagitis; E78.9 Disorder of lipoprotein metabolism, unspecified; N40.1 Benign prostatic hyperplasia with lower urinary tract symptoms; R35.0 Frequency of micturition
CPT/HCPCS: 36415; 80053; 82043; 82570; 83036; 83721; 84153; 84443; 85025

== ENCOUNTER 2024-05-26 09:45 | Outpatient (AMB) | payer OTHER, SELFPAY ==
[2024-05-26 09:47] VITALS: BP 128/60; BMI 23.3
--- NOTE | 2024-05-26 09:47 | MHC.PC.OV ---
Vital Signs 05/26/24 09:47 Height 6 ft 1 in Weight 176 lb 4 oz BMI 23.3 BP 128/60 Blood Pressure Location Rt brachial Position Sitting Intake Visit Reasons: DM f/u Allergies clozapine [From CLOZARIL] Allergy (Unknown, Verified 05/26/24 09:48) UNKNOWN lamotrigine [Lamictal] Allergy (Unknown, Verified 05/26/24 09:48) unknown phenytoin [Dilantin] Allergy (Unknown, Verified 05/26/24 09:48) unknown Medication List - Last Reconciled 05/26/24 by Crystal Lenz MD alcohol swabs (Alcohol Prep Pads) 1 pad topical .twice per day blood sugar diagnostic (FreeStyle Lite Strips) Use to check blood sugar twice daily: fasting and random blood-glucose meter (FreeStyle Lite Meter kit) Use to check blood sugar twice daily: fasting and random gemfibrozil 600 mg PO BID 90 days haloperidol mg PO haloperidol mg PO lancets (FreeStyle Lancets) Use to check blood sugar twice daily: fasting and random lisinopril 5 mg PO .qhs lorazepam (Ativan) 2 mg PO BEDTIME PRN lorazepam 1 mg PO QID PRN metformin 1,000 mg PO BIDWMEAL olanzapine mg PO olanzapine 10 mg PO BEDTIME omeprazole 20 mg PO DAILY polyethylene glycol 3350 grams PO tamsulosin 0.4 mg PO DAILY Tobacco use date assessed: 05/26/24 Dental Screening Dental Screen Date: 05/26/24 Did you have a dental visit in the last 12 months?: Yes Did you have a dental problem in the last 6 months where you did not have access to dental care?: No Was dental information given to patient?: Patient has dentist HPI DM f/u HPI Details Patient is a 59-year-old gentleman came in today for his follow-up appointment Labs done recently reviewed, hemoglobin A1c is 5.7 Patient is on metformin 1 g b.i.d. 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 However patient declined to take inhaler His blood pressure is within reasonable control, patient is on lisinopril 5 mg Constipation is stable with MiraLax GERD is stable with omeprazole He is also on tamsulosin 0.4 mg for benign prostatic hypertrophy through [facility] Follow-up 4 months [facility] Medical History Diabetes mellitus GERD (gastroesophageal reflux disease) Insomnia Anxiety H/O urinary frequency Benign prostatic hyperplasia with lower urinary tract symptoms Surgical History No pertinent past surgical history Family History Father No problems noted. Mother No problems noted. Social History Housing: Apartment Alcohol intake: never Patient Tobacco Use Status: Current everyday Tobacco user Tobacco use type: Cigarette Cigarette Packs Per Day: 1 Cigarettes Per Day: 20 Years Smoked: 5 Packs Per Year: 5 Packs per year/per ci.00 e-Cigarette/Vaping Use: Never Used service: No Current occupational status: retired Cognitive needs: No Hearing needs: No Vision needs: No Questionnaire PHQ-9 Over the last 2 weeks, how often have you been bothered by any of the following problems? 1. Little interest or pleasure in doing things: not at all 2. Feeling down, depressed, or hopeless: not at all 3. Trouble falling or staying asleep, or sleeping too much: not at all 4. Feeling tired or having little energy: not at all 5. Poor appetite or overeating: not at all 6. Feeling bad about yourself - or that you are a failure or have let yourself or your family down: not at all 7. Trouble concentrating on things, such as reading the newspaper or watching television: not at all 8. Moving or speaking so slowly that other people could have noticed. Or the opposite - being so fidgety or restless that you have been moving around a lot more than usual: not at all 9. Thoughts that you would be better off or of hurting yourself in some way: not at all Total score: 0 Depression Screening Interpretation: Negative Depression Screening Done: Yes 30157 - PHQ-9 Billing: Yes Source: Developed by Drs. Pablo Mcarthur, Qing Nicole, William Clemente and colleagues, with an educational pat from [employer]. Thrive Questionnaire Date Thrive assessed: 05/26/24 I am a: Patient What is your living situation today?: I have a steady place to live Within the past 12 months, did the food you bought not last and you didn't have the money to get more?: Never true Within the past 12 months, did you worry whether your food would run out before you got money to buy more?: Never true Do you have trouble paying for medicines?: No Do you have trouble getting transportation to medical appointments?: No Do you have trouble paying your heating and electricity bill?: No Do you have trouble taking care of your child, family member or friend?: I choose not to answer this question Do you have trouble with day-to-day activities such as bathing, preparing meals, shopping, managing finances, etc.?: No Are you currently unemployed and looking for a job?: Yes Are you interested in more education?: No Please select the resources that you would like help with: None Currently or been in a relationship where the following occur: No concerns reported THRIVE Score: 0 AUDIT C Alcohol Use Questionnaire (AUDIT-C) 1. How often do you have a drink containing alcohol?: Never 3. How often do you have six or more drinks on one occasion?: Never Total Score: 0 Score Reviewed/Action Taken: Yes BRIAN-7 AMB Questionnaire BRIAN-7 Date BRIAN - 7 assessed: 05/26/24 Feeling nervous, anxious, or on edge: 0 = Not at all Not being able to stop or control worryin = Not at all Worrying too much about different things: 0 = Not at all Trouble relaxin = Not at all Being so restless that it is hard to sit still: 0 = Not at all Becoming easily annoyed or irritable: 0 = Not at all Feeling afraid as if something awful might happen: 0 = Not at all Total BRIAN-7 score (0-4 normal; 5-9 mild; 10-14 moderate; 15-21 severe): 0 Source: Developed by Drs. Pablo Mcarthur, Qing Nicole, William Clemente and colleagues, with an educational pat from [employer]. BRIAN-7 Assessment Billing BRIAN-7 Assessment Tool: BRIAN-7 Assessment 95403 Review of Systems Const Denies chills and Denies fever(s) ENT Denies epistaxis and Denies nasal discharge Card Denies chest pain Resp Denies chest congestion, Denies cough and Denies hemoptysis GI Denies diarrhea and Denies nausea Skin/Breast Denies rash Neuro Reports no additional complaints Psych Reports no additional complaints Endo Reports no additional complaints Physical exam (Primary Care) Vital Signs: Last Vital Signs BP 128/60 05/26/24 09:47 BMI result Body Mass Index 23.3 Tobacco/Smoking Status: Tobacco use Status Tobacco use date assessed 05/26/24 05/26/24 09:50 Patient Tobacco Use Status Current everyday Tobacco 05/26/24 09:50 Tobacco use type Cigarette 05/26/24 09:50 e-Cigarette/Vaping Use Never Used 05/26/24 09:50 PHQ-9: PHQ-9 Score PHQ-9: Total score 0 05/26/24 09:54 Depression Screening Interpretation: Negative Thrive Assessment: Date of Thrive Assessment Date Thrive assessed 05/26/24 05/26/24 09:54 Currently or been in a relationship where the following occur: No concerns reported Const General: cooperative, comfortable and no acute distress Orientation/consciousness: patient oriented x3 HENMT Head: Yes normocephalic Eyes General: appearance normal, both eyes and all related structures Neck Neck: Yes supple Resp Effort & Inspection: normal respiratory effort, no cough and no stridor Cardio Rhythm: regular rhythm Heart sounds: S1 normal heart sound present and S2 normal heart sound present Skin General skin exam: turgor normal Neuro General: patient oriented x3, tone normal and moves all extremities Extrem Right lower extremity: no edema Left lower extremity: no edema Coding Level of Care Code Est Pt Level 4 (04461) Diagnoses Controlled type 2 diabetes mellitus with complication, without long-term current use of insulin E11.8 Diabetes mellitus complication status: with unspecified complications 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 use Hypertension, essential I10 Tobacco abuse Z72.0 Chronic GERD K21.9 Lipid disorder E78.9 Benign prostatic hyperplasia with urinary frequency N40.1; R35.0 Lower urinary tract symptom detail: urinary frequency Additional Codes BRIAN-7 Assessment Billing - BRIAN-7 Assessment Tool: BRIAN-7 Assessment [id number] ([id number]) PHQ-9 - 16977 - PHQ-9 Billing: Yes ([id number]) Assessment & Plan Assessment & Plan (1) Diabetes mellitus type 2, controlled: Code(s): E11.9 - Type 2 diabetes mellitus without complications Category: Medical Qualifiers: Diabetes mellitus complication status: with unspecified complications Diabetes mellitus detention insulin use: without detention use Qualified Code(s): E11.8 - Type 2 diabetes mellitus with unspecified complications (2) Hypertension, essential: Code(s): I10 - Essential (primary) hypertension Category: Medical (3) Tobacco abuse: Code(s): Z72.0 - Tobacco use Category: Medical (4) Chronic GERD: Code(s): K21.9 - Gastro-esophageal reflux disease without esophagitis Category: Medical (5) Lipid disorder: Code(s): E78.9 - Disorder of lipoprotein metabolism, unspecified Category: Medical (6) Benign prostatic hyperplasia with lower urinary tract symptoms: Code(s): N40.1 - Benign prostatic hyperplasia with lower urinary tract symptoms Category: Medical Qualifiers: Lower urinary tract symptom detail: urinary frequency Qualified Code(s): N40.1 - Benign prostatic hyperplasia with lower urinary tract symptoms; R35.0 - Frequency of micturition Plan Patient is a 59-year-old gentleman came in today for his follow-up appointment Labs done recently reviewed, hemoglobin A1c is 5.7 Patient is on metformin 1 g b.i.d. 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
== END 2024-05-26 13:05 | disposition home or self-care (01) ==
PROVIDERS: PCP Internal Medicine; Visit Provider Internal Medicine
DX: E11.8 Type 2 diabetes mellitus with unspecified complications (principal); I10 Essential (primary) hypertension; Z72.0 Tobacco use; K21.9 Gastro-esophageal reflux disease without esophagitis; E78.9 Disorder of lipoprotein metabolism, unspecified; N40.1 Benign prostatic hyperplasia with lower urinary tract symptoms; R35.0 Frequency of micturition

== ENCOUNTER → 2024-05-26 09:45 | Outpatient (BNVA) | payer OTHER, SELFPAY | PROVIDERS: PCP Internal Medicine; Visit Provider Internal Medicine | DX: E11.8 Type 2 diabetes mellitus with unspecified complications (principal); I10 Essential (primary) hypertension; K21.9 Gastro-esophageal reflux disease without esophagitis; E78.9 Disorder of lipoprotein metabolism, unspecified; N40.1 Benign prostatic hyperplasia with lower urinary tract symptoms; R35.0 Frequency of micturition; Z72.0 Tobacco use | CPT/HCPCS: 96127; 99212 ==

== ENCOUNTER 2024-09-20 09:58 | Outpatient (AMB) | payer OTHER, SELFPAY ==
[2024-09-20 10:13] VITALS: BP 122/74; PULSE 114; O2SAT 98; BMI 23.9
--- NOTE | 2024-09-20 10:13 | A.OFFPC_ITS ---
Vital Signs 09/20/24 10:13 Height 6 ft 1 in Weight 181 lb 4 oz BMI 23.9 BP 122/74 Blood Pressure Location Rt brachial Position Sitting Pulse 114 H Pulse Source Pulse Oximeter Pulse Oximetry (%) 98 Oxygen Delivery Method Room Air Intake Visit Reasons: Annual PE Allergies clozapine [From CLOZARIL] Allergy (Unknown, Verified 09/20/24 10:14) UNKNOWN lamotrigine [Lamictal] Allergy (Unknown, Verified 09/20/24 10:14) unknown phenytoin [Dilantin] Allergy (Unknown, Verified 09/20/24 10:14) unknown Medication List - Last Reconciled 09/20/24 by Crystal Lenz MD alcohol swabs (Alcohol Prep Pads) 1 pad topical .twice per day blood sugar diagnostic (FreeStyle Lite Strips) Use to check blood sugar twice daily: fasting and random blood-glucose meter (FreeStyle Lite Meter kit) Use to check blood sugar twice daily: fasting and random gemfibrozil 600 mg PO BID 90 days haloperidol mg PO haloperidol mg PO lancets (FreeStyle Lancets) Use to check blood sugar twice daily: fasting and random lisinopril 5 mg PO .qhs lorazepam (Ativan) 2 mg PO BEDTIME PRN lorazepam 1 mg PO QID PRN metformin 1,000 mg PO BIDWMEAL olanzapine mg PO olanzapine 10 mg PO BEDTIME omeprazole 20 mg PO DAILY polyethylene glycol 3350 grams PO tamsulosin 0.4 mg PO DAILY Tobacco use date assessed: 09/20/24 Dental Screening Dental Screen Date: 09/20/24 Did you have a dental visit in the last 12 months?: Yes Did you have a dental problem in the last 6 months where you did not have access to dental care?: No Was dental information given to patient?: Patient has dentist HPI Annual PE HPI Details Physical exam appointment - The patient is a 59-year-old male pres enting 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 - The patient continues to smoke but has reduced the amount due to a desire to quit, suggesting ongoing management of tobacco use disorder. - Previous labs were conducted in Januar y, and a follow-up blood test is planned before the next appointment. - The patient has not had a colonoscopy and is resistant to undergoing this procedure. The option of a Cologuard test was discussed to collect a stool sample. Health Maintenance - Discussion of smoking cessation as an ongoing effort. - Colon cancer screening with Cologuard was proposed as an alternative to colonoscopy. 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 Diagnostic results - Labs were conducted in May (specif ic results not mentioned). Patient Instructions - Follow up with routine blood tests bef ore the next appointment. - Consideration of Cologuard test as a c olon cancer screening option. - Continue to work on reducing smoking a nd eventually quitting. Review of Systems - General: No fever no chills - Neurological: No headaches no dizzin ess - Ear nose throat: No sore throat no hearing difficulty no ear pain - Cardiovascular: No syncope, no chest pain, no palpitations - Gastrointestinal: No nausea vomiting or diarrhea - Endocrine: No polyuria polydipsia no heat intolerance - Genitourinary: No dysuria - Skin: No new complaints Physical Exam General: Cooperative, healthy appearing, comfortable, no acute distress Orientation: Patient oriented x3 Head: Pain in the back of the head noted Ears: Within normal limit visually Nose: Normal external nose present Face and sinus: Normal facial exam Eyes: Appearance normal, extraocular movement intact pupils reactive Neck: Normal visual inspection, supple, history of muscular pain Respiratory: Normal respiratory effort and able to speak in complete sentences. Clear to auscultation, no stridor Cardiovascular: S1 and S2 RRR GI: Normal to inspection. Soft to palpation and nontender Skin: Turgor normal, no acute findings, no skin problems reported Neuro: Patient oriented x3, motor sensory intact, balance intact, tandem failed Extremities: Normal to inspection [facility] Medical History Diabetes mellitus GERD (gastroesophageal reflux disease) Insomnia Anxiety H/O urinary frequency Benign prostatic hyperplasia with lower urinary tract symptoms Surgical History No pertinent past surgical history Family History Father No problems noted. Mother No problems noted. Social History Housing: Apartment Alcohol intake: never Patient Tobacco Use Status: Current everyday Tobacco user Tobacco use type: Cigarette Cigarette Packs Per Day: 1 Cigarettes Per Day: 20 Years Smoked: 5 e-Cigarette/Vaping Use: Never Used service: No Current occupational status: retired Cognitive needs: No Hearing needs: No Vision needs: No Questionnaire Thrive Questionnaire Date Thrive assessed: 09/20/24 I am a: Patient What is your living situation today?: I have a steady place to live Within the past 12 months, did the food you bought not last and you didn't have the money to get more?: Never true Within the past 12 months, did you worry whether your food would run out before you got money to buy more?: Never true Do you have trouble paying for medicines?: No Do you have trouble getting transportation to medical appointments?: No Do you have trouble paying your heating and electricity bill?: No Do you have trouble taking care of your child, family member or friend?: I choose not to answer this question Do you have trouble with day-to-day activities such as bathing, preparing meals, shopping, managing finances, etc.?: No Are you currently unemployed and looking for a job?: Yes Are you interested in more education?: No Please select the resources that you would like help with: None Currently or been in a relationship where the following occur: No concerns reported THRIVE Score: 0 AUDIT C Alcohol Use Questionnaire (AUDIT-C) 1. How often do you have a drink containing alcohol?: Never 3. How often do you have six or more drinks on one occasion?: Never Total Score: 0 Score Reviewed/Action Taken: Yes BRIAN-7 AMB Questionnaire BRIAN-7 Date BRIAN - 7 assessed: 05/26/24 Source: Developed by Drs. Pablo Mcarthur, Qing Nciole, William Clemente and colleagues, with an educational pat from [employer]. Physical exam (Primary Care) Vital Signs: Last Vital Signs Pulse 114 H 09/20/24 10:13 BP 122/74 09/20/24 10:13 Pulse Ox 98 09/20/24 10:13 Oxygen Delivery Method Room Air 09/20/24 10:13 BMI result Body Mass Index 23.9 Tobacco/Smoking Status: Tobacco use Status Tobacco use date assessed 09/20/24 09/20/24 10:16 Patient Tobacco Use Status Current everyday Tobacco 09/20/24 10:16 Tobacco use type Cigarette 09/20/24 10:16 e-Cigarette/Vaping Use Never Used 09/20/24 10:16 Thrive Assessment: Date of Thrive Assessment Date Thrive assessed 09/20/24 09/20/24 10:16 Currently or been in a relationship where the following occur: No concerns reported Coding Level of Care Code Est Pt Level 4 (23377) Est Pt Prev Care 40-64y(62649) Diagnoses Encounter for general adult medical examination with abnormal findings Z00.01 Controlled type 2 diabetes mellitus with complication, without long-term current use of insulin E11.8 Diabetes mellitus prison insulin use: without medical terminologist use Diabetes mellitus complication status: with unspecified complications Hypertension, essential I10 Tobacco abuse Z72.0 Chronic GERD K21.9 Lipid disorder E78.9 Benign prostatic hyperplasia with urinary frequency N40.1; R35.0 Lower urinary tract symptom detail: urinary frequency Assessment & Plan Assessment & Plan (1) Encounter for general adult medical examination with abnormal findings: Code(s): Z00.01 - Encounter for general adult medical examination with abnormal findings Category: Medical (2) Diabetes mellitus type 2, controlled: Code(s): E11.9 - Type 2 diabetes mellitus without complications Category: Medical Qualifiers: Diabetes mellitus prison insulin use: without prison use Diabetes mellitus complication status: with unspecified complications Qualified Code(s): E11.8 - Type 2 diabetes mellitus with unspecified complications (3) Hypertension, essential: Code(s): I10 - Essential (primary) hypertension Category: Medical (4) Tobacco abuse: Code(s): Z72.0 - Tobacco use Category: Medical (5) Chronic GERD: Code(s): K21.9 - Gastro-esophageal reflux disease without esophagitis Category: Medical (6) Lipid disorder: Code(s): E78.9 - Disorder of lipoprotein metabolism, unspecified Category: Medical (7) Benign prostatic hyperplasia with lower urinary tract symptoms: Code(s): N40.1 - Benign prostatic hyperplasia with lower urinary tract symptoms Category: Medical Qualifiers: Lower urinary tract symptom detail: urinary frequency Qualified Code(s): N40.1 - Benign prostatic hyperplasia with lower urinary tract symptoms; R35.0 - Frequency of micturition Plan Physical exam appointment - The patient is a 59-year-old male 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 - The patient continues to smoke but has reduced the amount due to a desire to quit, suggesting ongoing management of tobacco use disorder. - Previous labs were conducted in May, and a follow-up blood test is planned before the next appointment. - The patient has not had a colonoscopy and is resistant to undergoing this p rocedure. The option of a Cologuard test was discussed to collect a stool sample. Health Maintenance - Discussion of smoking cessation as an ongoing effort. - Colon cancer screening with Cologuard was proposed as an alternative to colonoscopy. 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 Diagnostic results - Labs were conducted in May (specific results not mentioned). Patient Instructions - Follow up with routine blood tests before the next appointment. - Consideration of Cologuard test as a colon cancer screening option. - Continue to work on reducing smoking and eventually quitting. Orders: Orders Comprehensive Met. Panel 3 Months E11.8 - Type 2 diabetes mellitus with unspecified complications, E78.9 - Disorder of lipoprotein metabolism, unspecified, I10 - Essential (primary) hypertension, K21.9 - Gastro-esophageal reflux disease without esophagitis, N40.1 - Benign prostatic hyperplasia with lower urinary tract symptoms, R35.0 - Frequency of micturition, Z00.01 - Encounter for general adult medical examination with abnormal findings, Z72.0 - Tobacco use LDL Cholesterol Direct 3 Months E11.8 - Type 2 diabetes mellitus with unspecified complications, E78.9 - Disorder of lipoprotein metabolism, unspecified, I10 - Essential (primary) hypertension, K21.9 - Gastro-esophageal reflux disease without esophagitis, N40.1 - Benign prostatic hyperplasia with lower urinary tract symptoms, R35.0 - Frequency of micturition, Z00.01 - Encounter for general adult medical examination with abnormal findings, Z72.0 - Tobacco use Triglycerides 3 Months E11.8 - Type 2 diabetes mellitus with unspecified complications, E78.9 - Disorder of lipoprotein metabolism, unspecified, I10 - E ssential (primary) hypertension, K21.9 - Gastro-esophageal reflux disease without esophagitis, N40.1 - Benign prostatic hyperplasia with lower urinary tract symptoms, R35.0 - Frequency of micturition, Z00.01 - Encounter for general adult medical examination with abnormal findings, Z72.0 - Tobacco use Microalbumin, Random (w Creat) 3 Months E11.8 - Type 2 diabetes mellitus with unspecified complications, E78.9 - Disorder of lipoprotein metabolism, unspecified, I10 - Essential (primary) hypertension, K21.9 - Gastro-esophageal reflux disease without esophagitis, N40.1 - Benign prostatic hyperplasia with lower urinary tract symptoms, R35.0 - Frequency of micturition, Z00.01 - Encounter for general adult medical examination with abnormal findings, Z72.0 - Tobacco use Prostate Specific Antigen 3 Months N40.1 - Benign prostatic hyperplasia with lower urinary tract symptoms, R35.0 - Frequency of micturition Complete Blood Count Auto Diff 3 Months E11.8 - Type 2 diabetes mellitus with unspecified complications, E78.9 - Disorder of lipoprotein metabolism, unspecified, I10 - Essential (primary) hypertension, K21.9 - Gastro-esophageal reflux disease without esophagitis, N40.1 - Benign prostatic hyperplasia with lower urinary tract symptoms, R35.0 - Frequency of micturition, Z00.01 - Encounter for general adult medical examination with abnormal findings, Z72.0 - Tobacco use TSH reflex Free T4 3 Months E11.8 - Type 2 diabetes mellitus with unspecified complications, E78.9 - Disorder of lipoprotein metabolism, unspecified, I10 - Essential (primary) hypertension, K21.9 - Gastro-esophageal reflux disease without esophagitis, N40.1 - Benign prostatic hyperplasia with lower urinary tract symptoms, R35.0 - Frequency of micturition, Z00.01 - Encounter for general adult medical examination with abnormal findings, Z72.0 - Tobacco use Hemoglobin A1c 3 Months E11.8 - Type 2 diabetes mellitus with unspecified complications, E78.9 - Disorder of lipoprotein metabolism, unspecified, I10 - Essential (primary) hypertension, K21.9 - Gastro-esophageal reflux disease without esophagitis, N40.1 - Benign prostatic hyperplasia with lower urinary tract symptoms, R35.0 - Frequency of micturition, Z00.01 - Encounter for general adult medical examination with abnormal findings, Z72.0 - Tobacco use
== END 2024-09-20 10:35 | disposition home or self-care (01) ==
LOC: HO.HMCC 09:59
PROVIDERS: PCP Internal Medicine; Visit Provider Internal Medicine
DX: Z00.00 Encounter for general adult medical examination without abnormal findings (principal); E11.8 Type 2 diabetes mellitus with unspecified complications; I10 Essential (primary) hypertension; Z72.0 Tobacco use; K21.9 Gastro-esophageal reflux disease without esophagitis; E78.9 Disorder of lipoprotein metabolism, unspecified; N40.1 Benign prostatic hyperplasia with lower urinary tract symptoms; R35.0 Frequency of micturition

== ENCOUNTER → 2024-09-20 09:58 | Outpatient (BNVA) | payer OTHER, SELFPAY | PROVIDERS: PCP Internal Medicine; Visit Provider Internal Medicine | DX: Z00.01 Encounter for general adult medical examination with abnormal findings (principal); E11.8 Type 2 diabetes mellitus with unspecified complications; I10 Essential (primary) hypertension; K21.9 Gastro-esophageal reflux disease without esophagitis; E78.9 Disorder of lipoprotein metabolism, unspecified; N40.1 Benign prostatic hyperplasia with lower urinary tract symptoms; R35.0 Frequency of micturition; Z72.0 Tobacco use; Z79.84 Long term (current) use of oral hypoglycemic drugs; Z79.899 Other long term (current) drug therapy | CPT/HCPCS: 99396 ==